=== PATIENT | male | born 1955 | race Caucasian/White ===

== ENCOUNTER 2024-01-01 10:18 | Emergency (ER) | payer MEDICARE, OTHER, SELFPAY ==
[2024-01-01 10:31] VITALS: BP 133/90
[2024-01-01 11:01] LABS: Urine Albumin Trace (Neg - Trace); Urine Bilirubin Negative (Negative); Urine Character Clear (Clear); Urine Color Yellow; Urine Glucose Negative (Negative); Urine Ketone Negative (Negative); Urine Leukocyte Trace (Negative); Urine Nitrite Negative (Negative); Urine Occult Blood 2+ (Negative); Urine Urobilinogen Negative (Neg - 1+)
[2024-01-01 11:02] LABS: % Basophils 0.4 % (0-2); % Eosinophils 0.5 % (0-6); % Immature Granulocytes 0.3 % (0-0.5); % Lymphocytes 9.8 % (20.5-51.1); % Monocytes 13.3 % (1.7-9.3); % Neutrophils 75.7 % (42.2-75.2); Absolute Basophils 0.1 10^3/uL (0-0.2); Absolute Eosinophils 0.1 10^3/uL (0-0.7); Absolute Lymphocytes 1.1 10^3/uL (1.2-3.4); Absolute Monocytes 1.5 10^3/uL (0.1-0.6); Absolute Neutrophils 8.7 10^3/uL (1.4-6.5); Hematocrit 42.4 % (39.0-52.0); Hemoglobin 14.3 g/dL (13.0-18.0); Mean Corp Hgb Conc. 33.7 g/dL (33.0-37.0); Mean Corpuscular Hgb 26.7 pg (27.0-31.0); Mean Corpuscular Volume 79.1 fL (80.0-94.0); Mean Platelet Volume 10.4 fL (7.4-10.4); Nucleated Red Blood Cells % 0 % (-); Platelet Count 220 10^3/uL (130-400); Red Blood Cell Count 5.36 10^6/uL (4.70-6.10); Red Cell Dist. Width 15.4 % (11.5-14.5); White Blood Cell Count 11.5 10^3/uL (4.8-10.8)
[2024-01-01 11:11] LABS: ALT (SGPT) 26 U/L (0-50); AST (SGOT) 34 U/L (17-59); Albumin 4.2 g/dl (3.5-5.0); Alkaline Phosphatase 103 U/L (38-126); Blood Urea Nitrogen 15 mg/dl (9-20); Calcium 9.3 mg/dl (8.4-10.2); Carbon Dioxide 27 mmol/L (22-30); Chloride 104 mmol/L (98-107); Glucose 119 mg/dl (70-99); Potassium 4.6 mmol/L (3.5-5.1); Sodium 134 mmol/L (135-145); eGFR > 60.00
[2024-01-01 11:13] LABS: Urine Mucus Moderate; Urine Squamous Cell 0-2 /LPF (Few)
[2024-01-01 11:14] LABS: Urine Bacteria Few (Negative)
[2024-01-01 11:23] VITALS: BMI 27.7
[2024-01-01 11:24] VITALS: BP 132/80
--- NOTE | 2024-01-01 11:59 | ED.GENMED ---
History of Present Illness
General
Chief Complaint: Flank Pain
Source: patient
Exam Limitations: none
Time Seen by Provider: 01/01/24 10:58
Nursing documentation reviewed up to this point in time: agreed with
Travel History
Have you had any contact with someone who has COVID-19?: No
Do you have any symptoms of coronavirus? Fever > 100 degrees, chills, cough, shortness of breath, sore throat, loss of taste or smell, muscle aches, or headache?: No
History of Present Illness
History of Present Illness:
The patient is a 68-year-old man with a past medical history of kidney stones who presents with left sided pain and is worried he may have another kidney stone. Patient reports he felt the discomfort this morning. It is intermittent in nature. He
denies fevers and chills. He denies nausea and vomiting. Patient reports the pain is minimal at this time.
Past History
Past History
ED Past Medical History: CAD, HTN, [place] and Other (Kidney stone, DVT L leg)
ED Past Surgical History: Cardiac, Orthopedic and Other (cath)
Social History
Tobacco: Non-smoker
Alcohol: Occasional
Drug: None
Personal:
Living: with family
Employment: Employed
Family History
Family History: Negative Diabetes, Hypertension or CAD
Review of Systems
Review of Systems
Allergies reviewed?: Yes
All Other Systems: ROS reviewed and negative except as documented in HPI and ROS
Constitutional: Reports no symptoms
EENT: Reports no symptoms
Respiratory: Reports no symptoms
Cardiac: Reports no symptoms
ABD/GI: Reports no symptoms
: Reports flank pain
Musculoskeletal: Reports no symptoms
Skin: Reports no symptoms
Neurological: Reports no symptoms
Endocrine: Reports no symptoms
Hematologic/Lymphatic: Reports no symptoms
Psychiatric: Reports no symptoms
Phy Exam
Physical Exam
Physical Exam:
Physical Exam
General: no apparent distress, not acutely ill
Neck: supple. no meningeal signs. normal posterior pharynx
Heart: s1/s2 regular rate and rhythm, no murmur. equal radial pulses.
Lungs: no acute respiratory distress. clear bilaterally
Abdomen: normal bowel sounds. Nondistended. Mild left lower quadrant and left flank tenderness without rebound or guarding. No pulsatile mass
Neuro: alert and oriented. no focal neurological deficits
Skin: no rash
Psychiatric: well kept. interactive and cooperative
Extremities: no edema. no calf tenderness. negative homans. good distal pulses
Course
Orders/Labs/Results
Orders:
Orders
01/01/24 10:53
Complete Blood Count/With Diff Urgent
Comprehensive Metabolic Panel Urgent
Urinalysis Reflex To Culture Urgent
Date Specimen was Collected: 01/01/24
Time Specimen was Collected: 10:33
Urine Microscopic Reflex Cult Urgent
01/01/24 11:53
CT Abd/pel Without Iv Or Oral Urgent
Comment:
Reason For Exam: L flank pain
01/01/24 13:06
Amoxicillin 875 mg/Clav 125 mg [Augmentin 875 mg/125 mg] 1 tablet PO NOW STA
Abnormal Lab Results
01/01/24
10:53
WBC 11.5 H 10^3/uL
(4.8-10.8)
MCV 79.1 L fL
(80.0-94.0)
MCH 26.7 L pg
(27.0-31.0)
RDW 15.4 H %
(11.5-14.5)
Absolute Neuts (auto) 8.7 H 10^3/uL
(1.4-6.5)
Absolute Lymphs (auto) 1.1 L 10^3/uL
(1.2-3.4)
Absolute Monos (auto) 1.5 H 10^3/uL
(0.1-0.6)
Neutrophils % 75.7 H %
(42.2-75.2)
Lymphocytes % 9.8 L %
(20.5-51.1)
Monocytes % 13.3 H %
(1.7-9.3)
Sodium 134 L mmol/L
(135-145)
Glucose 119 H mg/dl
(70-99)
Total Bilirubin 2.0 H mg/dl
(0.2-1.3)
Ur Occult Blood Reflex 2+ A
(Negative)
Leukocyte Esterase Rfl Trace A
(Negative)
Urine RBC 7-10 A /HPF
(0-2)
Urine Bacteria (Reflex) Few A
(Negative)
01/01/24 10:53
01/01/24 10:53
Vital Signs
Initial and Last Documented VS:
Initial Vital Signs
Temp Pulse Resp BP Pulse Ox
97.1 F 86 18 133/90 97
01/01/24 10:31 01/01/24 10:31 01/01/24 10:31 01/01/24 10:31 01/01/24 10:31
Last Documented Vital Signs
Temp Pulse Resp BP Pulse Ox
97.1 F 86 18 138/93 97
01/01/24 10:31 01/01/24 10:31 01/01/24 10:31 01/01/24 13:15 01/01/24 10:31
MDM/Problems Addressed
Differential Diagnosis Includes:
Renal colic, aortic aneurysm, musculoskeletal pain
MDM/Problems Addressed:
Patient presents with acute left flank pain
Chronic conditions affecting care:
Patient has history of kidney stones
Acute Exacerbation and/or Progression of Chronic Illness:
Patient may have acute exacerbation of renal colic because he states he has chronic kidney stones
*Radiology
Radiology exam reviewed: radiology read reviewed
*Pulse Oximetry
Patient hypoxic: no
*Critical Care Note
Total Time (30-74mins, 75-104mins- exclusive of procedures): Not Applicable
Data Reviewed
Review of Other/Old Records Reveals: Operative Reports (Operative note reviewed from Dr. Baig from 09/2019 when patient had stenting and lithotripsy performed for kidney stones)
Source: patient
Patient Management
Social determinants of health affecting care: Living situation and Strong social support
Escalation/DeEscalation of care consider admission/obs:
Patient continues look very well and comfortable. There is no sign of toxicity or peritonitis. Patient sent home with copy of CT report to show his primary care doctor given that his infrarenal aortic aneurysm is slightly larger.
ED Attending Note
-
Portions of this chart may have been created with voice recognition software.� Occasional wrong word or��sound alike� substitutions may have occurred due to the inherent limitations of voice recognition software.
Discharge Plan
Departure
Patient Disposition: Home (Routine Discharge)
Date of Disposition: 01/01/24
Time of Disposition: 13:01
Patient with high blood pressure during this ER visit?: Yes
Condition: Good
Covid-19: Not Applicable
Discharge Problem:
Acute diverticulitis
Instructions: Diverticulitis (DC)
Prescriptions:
New
amoxicillin-pot clavulanate 875-125 mg tablet
1 tab PO BID Qty: 19 0RF
No Action
aspirin 81 MG tablet,delayed release (DR/EC)
81 mg PO DAILY Qty: 0 0RF
carvedilol 3.125 MG tablet
3.125 mg PO BID Qty: 60 3RF
losartan 25 MG tablet
25 mg PO DAILY Qty: 30 11RF
clopidogrel 75 MG tablet
75 mg PO DAILY Qty: 30 11RF
Hold Instructions: Resume on 04/07/23. HOLD PLAVIX for ~72HRS POST OP; OKAY TO RESUME TUESDAY AM 04/07/23
atorvastatin 80 MG tablet
80 mg PO DAILY@1400
potassium citrate
1,600 mg PO BID
tramadol 50 mg tablet
50 mg PO Q6HPRN PRN (Reason: severe pain/breakthrough pain) Qty: 10 0RF
acetaminophen [Tylenol Extra Strength] 500 mg tablet
1,000 mg PO Q6HPRN PRN (Reason: mild pain) Qty: 1 0RF
Referrals:
Chet Grant MD [Family Provider] -
Activity Restrictions/Additional Instructions:
Please follow-up with your primary care doctor in 1 to 2 weeks to show him your CAT scan report. It shows that your abdominal aortic aneurysm is slightly bigger, which may require follow-up.
Interventions
Interventions:
*Risk Screen - Suicide Last Done: 01/01/24 11:23
*General Assessment Last Done: 01/01/24 11:23
*Neglect/Abuse Screening Last Done: 01/01/24 11:23
ED- Fall Risk Assessment Last Done: 01/01/24 11:23
*ED COVID-19 Vaccine History Last Done: 01/01/24 11:23
[place]-Rexsuu-Fqdlkxsqps Assessment Last Done: 01/01/24 11:23
ED-Male Genitourinary Assessment Last Done: 01/01/24 11:23
[2024-01-01] MEDS: AUGMENTIN 875 MG/125 MG 1 TABLET PO (13:13)
[2024-01-01 13:15] VITALS: BP 138/93
== END 2024-01-01 13:34 | disposition home or self-care (01) ==
LOC: EMR 10:18
PROVIDERS: Emergency Medicine; EMERGENCY PHYSICIAN Emergency Medicine; FAMILY PHYSICIAN Family Medicine; REFERRING PHYSICIAN Specialist
DX: K57.32 Diverticulitis of large intestine without perforation or abscess without bleeding (principal); I71.43 Infrarenal abdominal aortic aneurysm, without rupture; I10 Essential (primary) hypertension; I25.10 Atherosclerotic heart disease of native coronary artery without angina pectoris; I25.2 Old myocardial infarction; Z86.718 Personal history of other venous thrombosis and embolism; Z87.442 Personal history of urinary calculi; Z79.82 Long term (current) use of aspirin; Z88.0 Allergy status to penicillin; Z91.048 Other nonmedicinal substance allergy status
CPT/HCPCS: 99284; 74176; 80053; 81003; 81015; 85025

== ENCOUNTER → 2024-03-14 06:19 | Day surgery (SDC) | payer MEDICARE, OTHER, SELFPAY | LOC: GI 06:19 | PROVIDERS: ATTENDING PHYSICIAN Internal Medicine; FAMILY PHYSICIAN Internal Medicine Cardiovascular Disease | DX: Z12.11 Encounter for screening for malignant neoplasm of colon (principal); K57.30 Diverticulosis of large intestine without perforation or abscess without bleeding; Z86.010 Personal history of colon polyps | CPT/HCPCS: G0105 ==

== ENCOUNTER 2024-04-30 11:21 | Inpatient (IN) | payer MEDICARE, OTHER, SELFPAY ==
[2024-04-30] VITALS (11 sets, daily range): BP systolic 96–146; BP diastolic 71–100; BMI 26.6; BMI 26.5
[2024-04-30] MEDS: NSS 1000 IV ×2 (06:42→12:29)
[2024-04-30] MEDS: TYLENOL 1000 MG PO (06:48)
--- NOTE | 2024-04-30 06:56 | ED.GENMED ---
History of Present Illness
General
Chief Complaint: Heart Rate Problem
Source: patient
Exam Limitations: none
Time Seen by Provider: 04/30/24 06:38
Nursing documentation reviewed up to this point in time: agreed with
Travel History
Have you had any contact with someone who has COVID-19?: No
Do you have any symptoms of coronavirus? Fever > 100 degrees, chills, cough, shortness of breath, sore throat, loss of taste or smell, muscle aches, or headache?: No
History of Present Illness
History of Present Illness:
The patient is a 69-year-old man with a past medical history of coronary artery disease, factor V Leiden, high blood pressure and high cholesterol, who comes in with complaints of sweating and chills for 2 days. Patient found to be tachycardic in
the ED and febrile. Patient reports he had 3 dental crowns placed 6 days ago. He denies chest pain and shortness of breath but states that he feels a little rattling in his chest and has been coughing. He also reports increased frequency of
urination but no burning or blood. He denies nausea, vomiting, abdominal pain and diarrhea. He denies sick contacts. He reports nasal congestion. He denies sore throat and headache.
Past History
Past History
ED Past Medical History: CAD, HTN, [place] and Other (Kidney stone, DVT L leg)
ED Past Surgical History: Cardiac, Orthopedic and Other (cath)
Social History
Tobacco: Non-smoker
Alcohol: Occasional
Drug: None
Personal:
Living: with family
Employment: Employed
Family History
Family History: Negative Diabetes, Hypertension or CAD
Review of Systems
Review of Systems
Allergies reviewed?: Yes
All Other Systems: ROS reviewed and negative except as documented in HPI and ROS
Constitutional: Reports fever, fatigue and chills
EENT: Reports other (Runny nose, nasal congestion)
Respiratory: Reports cough
Cardiac: Reports no symptoms
ABD/GI: Reports no symptoms
: Reports no symptoms
Musculoskeletal: Reports no symptoms
Skin: Reports no symptoms
Neurological: Reports no symptoms
Endocrine: Reports no symptoms
Hematologic/Lymphatic: Reports no symptoms
Psychiatric: Reports no symptoms
Phy Exam
Physical Exam
Physical Exam:
Physical Exam
General: Patient appears flushed and slightly anxious but conversational and fully awake
Neck: supple. no meningeal signs. normal psoterior pharynx
Heart: Tachycardic, regular
Lungs: Questionable crackles right lower lobe. No tachypnea
Abdomen: normal bowel sounds. not tender. no CVAT
Neuro: alert and oriented. no focal neurological deficits
Skin: no rash
Psychiatric: well kept. interactive and cooperative
Extremities: no edema. no calf tenderness. negative homans. good distal pulses
Course
Orders/Labs/Results
Orders:
Orders
04/30/24 06:19
Electrocardiogram (*1) Urgent
Reason for Study: Atrial Fibrillation
EKG- Treatment ONCE
04/30/24 06:29
CMP [Comprehensive Metabolic Panel] Urgent
Complete Blood Count/With Diff Urgent
Troponin I Urgent
04/30/24 06:31
Cardiac Monitoring- Treatment ONCE
IV Insert/Care/Rem.- Treatment PRN
O2 Therapy [RESP] Urgent
Titrate/Wean O2 to maintain O2 sat greater than (%): 93
Special Instructions: TO MAINTAIN CONTINUOUS O2 SATS > OR = 93%
Pulse Ox/cont/shift [RESP] Urgent
Quantity: 1
Special Instructions: CONTINUOUS
04/30/24 06:40
COVID-19 Antigen Urgent
Source: Nasal Swab
Lactic Acid Q4H
Comment: ON ICE, CANCEL 2ND ORDER IF FIRST LACTIC ACID LEVEL <2
Blood Culture Q30M
VICKY Source: Blood/Venous
Specimen Description:
Comment: FROM 2 SEPARATE SITES
Blood Culture Q30M
VICKY Source: Blood/Venous
Specimen Description:
Comment: FROM 2 SEPARATE SITES
Influenza A+B Rapid Molecular Urgent
VICKY Source: Nasal Swab
Specimen Description:
04/30/24 06:42
0.9% Sodium Chloride 1000 ml [Nss] 1,000 ml IV BOLUS
04/30/24 06:47
Acetaminophen [Tylenol] 1,000 mg .ROUTE .STK-MED ONE
04/30/24 06:48
Acetaminophen [Tylenol] 1,000 mg PO NOW STA
04/30/24 06:55
CR Chest - 2 Views Urgent
Comment:
Reason For Exam: fever, tachycardia, cough
04/30/24 06:56
Ibuprofen [Motrin] 600 mg PO NOW STA
04/30/24 07:30
Urinalysis Reflex To Culture Urgent
Date Specimen was Collected: 04/30/24
Time Specimen was Collected: 07:29
Urine Microscopic Reflex Cult Urgent
04/30/24 08:37
CefTRIAXone [Rocephin] 1,000 mg IV NOW STA
04/30/24 08:38
MetroNIDAZOLE 500 MG/100 ML [Flagyl 500 mg] 100 ml IV ONCE
04/30/24 08:40
Heparin 4,000 units IV NOW STA
Pharmacy Request to Place See Dose Instructions PO NOW STA
Discontinue all Active Warfarin orders?: Yes
04/30/24 08:41
PTT Urgent
Comment: Obtain baseline before beginning heparin infusion if not already collected
Nursing to Place Non Medication Order As Directed
Physician Order: PTT 6 hours after initial start of Heparin infusion
04/30/24 08:45
Heparin INFUSION titrate rate - CONTINUOUS Heparin 45306 Units/250 ml 25,000 units in 250 ml IV PER PROTOCOL
Weight to be used for heparin protocol in kilograms (kg):: 89
Protocol:: Cardiac Tx/Acute Coronary
PTT Goal Range to be used:: PTT 73 to 111 seconds
Order type:: Initial
INITIAL Infusion Dose (UNITS/KG/hr) & then follow protocol:: 12 units/kg/hr
Infusion Dose in UNITS/hr & then follow protocol (UNITS/hr):: 1,000
INFUSION RATE in mL/hr & then follow protocol (mL/hr):: 10
PTT less than or equal to 64 seconds:: Increase rate by 200 units/hr (+ 2 mL/hr)
PTT 64.1 to 72.9 seconds:: Increase rate by 100 units/hr (+ 1 mL/hr)
PTT 73 to 111 seconds:: Target Range. No change in rate.
PTT 111.1 to 130.9 seconds:: Decrease rate by 100 units/hr (- 1 mL/hr)
PTT 131 to 199.9 seconds:: HOLD for 1 hr. Then decrease rate by 200 units/hr (- 2 mL/hr)
PTT greater than or equal to 200 seconds:: HOLD for 2 hrs & Notify Provider. Then decrease by 200 units/hr (-
2 mL/hr)
Lab follow-up:: Each change, PTT q6h until 2 consecutive are therapeutic. Then PTT
daily.
04/30/24 09:[address] See Dose Instructions IV DIRECTED
04/30/24 10:45
Lactic Acid Q4H
Comment: ON ICE, CANCEL 2ND ORDER IF FIRST LACTIC ACID LEVEL <2
Abnormal Lab Results
04/30/24 04/30/24
06:29 07:30
WBC 14.7 H 10^3/uL
(4.8-10.8)
MCV 76.8 L fL
(80.0-94.0)
MCH 26.1 L pg
(27.0-31.0)
RDW 15.0 H %
(11.5-14.5)
MPV 10.6 H fL
(7.4-10.4)
Abs Immat Gran (auto) 0.1 H 10^3/uL
(0-0.05)
Absolute Neuts (auto) 12.1 H 10^3/uL
(1.4-6.5)
Absolute Lymphs (auto) 0.8 L 10^3/uL
(1.2-3.4)
Absolute Monos (auto) 1.7 H 10^3/uL
(0.1-0.6)
Neutrophils % 82.5 H %
(42.2-75.2)
Lymphocytes % 5.1 L %
(20.5-51.1)
Monocytes % 11.8 H %
(1.7-9.3)
Sodium 133 L mmol/L
(135-145)
Carbon Dioxide 20 L mmol/L
(22-30)
Glucose 169 H mg/dl
(70-99)
Total Bilirubin 1.4 H mg/dl
(0.2-1.3)
Troponin I 0.148 H* ng/ml
Ur Occult Blood Reflex 4+ A
(Negative)
Urine RBC 26-30 A /HPF
(0-2)
Urine Glucose 1+ A
(Negative)
04/30/24 06:29
04/30/24 06:29
Vital Signs
Initial and Last Documented VS:
Initial Vital Signs
Temp Pulse Resp BP Pulse Ox
98.1 F 150 24 146/92 93
04/30/24 06:16 04/30/24 06:16 04/30/24 06:16 04/30/24 06:16 04/30/24 06:16
Last Documented Vital Signs
Temp Pulse Resp BP Pulse Ox
100.0 F 150 24 146/92 93
04/30/24 06:43 04/30/24 06:16 04/30/24 06:16 04/30/24 06:16 04/30/24 06:16
MDM/Problems Addressed
Differential Diagnosis Includes:
Pneumonia, UTI, endocarditis, bacteremia
MDM/Problems Addressed:
Patient presents with acute tachycardia and fever
Chronic conditions affecting care: HTN
Acute Exacerbation and/or Progression of Chronic Illness: HTN
*Radiology
Radiology exam reviewed: preliminary read by ED provider (Possible haziness left lower lung base) and radiology read reviewed
*Pulse Oximetry
Patient hypoxic: no
*EKG
Interpreted by ED Provider?: Yes
Interpretation: abnormal
Comparison EKG: changes noted
Rate: tachycardiac
Rhythm: atrial flutter
[place]: normal axis and left axis deviation
Interval: normal interval
QRS Pattern: normal QRS
Ischemia: non-specific ST changes
*Airbrush Artist Technical Interpretation
Rate: tachycardiac and other
Interpretation: abnormal
Rhythm: atrial flutter
*Critical Care Note
Total Time (30-74mins, 75-104mins- exclusive of procedures): 40 min
comment:
40 minutes of critical care given to the patient including frequent rechecks of his heart rate, reviewing his chest x-ray, reviewing his blood work, reviewing his EKG and counseling the patient about admission
Data Reviewed
Review of Other/Old Records Reveals: Progress Notes (Dr. Baig's note reviewed from 09/2019 when patient presented with bilateral kidney stones)
Source: patient
Patient Management
Discussion with other providers: Hospitalist
Escalation/DeEscalation of care consider admission/obs:
Given patient's new onset a flutter with rapid rate, as well as my concern for possible aspiration pneumonia or even possible bacteremia, decision made to admit the patient for IV antibiotics. Heparin will be started for the A-flutter.
ED Attending Note
-
Portions of this chart may have been created with voice recognition software.� Occasional wrong word or��sound alike� substitutions may have occurred due to the inherent limitations of voice recognition software.
Discharge Plan
Departure
Patient Disposition: Admit
Date of Disposition: 04/30/24
Time of Disposition: 08:38
Admit to: Telemetry
Presentation/result/management discussed w/ accepting MD/DO: Hospitalist
Patient with high blood pressure during this ER visit?: Yes
Condition: Good
Covid-19: Not Applicable
Discharge Problem:
New onset atrial flutter, Atrial flutter with rapid ventricular response, Fever, Cough
Prescriptions:
No Action
aspirin 81 MG tablet,delayed release (DR/EC)
81 mg PO DAILY Qty: 0 0RF
carvedilol 3.125 MG tablet
3.125 mg PO BID Qty: 60 3RF
losartan 25 MG tablet
25 mg PO DAILY Qty: 30 11RF
clopidogrel 75 MG tablet
75 mg PO DAILY Qty: 30 11RF
Hold Instructions: Resume on 04/07/23. HOLD PLAVIX for ~72HRS POST OP; OKAY TO RESUME TUESDAY AM 04/07/23
atorvastatin 80 MG tablet
80 mg PO DAILY@1400
Decongestant 2-5-325 mg Tablet
2 tab PO DAILYPRN PRN (Reason: congestion)
potassium citrate 15 mEq Tablet Extended Release
15 meq PO BID
Referrals:
Chet Grant MD [Family Provider] -
Interventions
Interventions:
*Risk Screen - Suicide Last Done: 04/30/24 06:16
*Neglect/Abuse Screening Last Done: 04/30/24 06:16
ED- Fall Risk Assessment Last Done: 04/30/24 07:08
ED- Cardiac Assessment Last Done: 04/30/24 07:08
ED- Pulmonary Assessment Last Done: 04/30/24 07:08
Discharge Date and Time
Print Language: GHANAIAN
[2024-04-30 06:58] LABS: % Basophils 0.2 % (0-2); % Immature Granulocytes 0.4 % (0-0.5); % Lymphocytes 5.1 % (20.5-51.1); % Monocytes 11.8 % (1.7-9.3); % Neutrophils 82.5 % (42.2-75.2); Absolute Immature Granulocytes 0.1 10^3/uL (0-0.05); Absolute Lymphocytes 0.8 10^3/uL (1.2-3.4); Absolute Monocytes 1.7 10^3/uL (0.1-0.6); Absolute Neutrophils 12.1 10^3/uL (1.4-6.5); Hematocrit 39.1 % (39.0-52.0); Hemoglobin 13.3 g/dL (13.0-18.0); Mean Corpuscular Hgb 26.1 pg (27.0-31.0); Mean Corpuscular Volume 76.8 fL (80.0-94.0); Mean Platelet Volume 10.6 fL (7.4-10.4); Nucleated Red Blood Cells % 0 % (-); Platelet Count 174 10^3/uL (130-400); Red Blood Cell Count 5.09 10^6/uL (4.70-6.10); White Blood Cell Count 14.7 10^3/uL (4.8-10.8)
[2024-04-30 07:12] LABS: Lactic Acid 1.1 mmol/L (0.7-2.0)
[2024-04-30 07:14] LABS: ALT (SGPT) 14 U/L (0-50); AST (SGOT) 22 U/L (17-59); Albumin 3.8 g/dl (3.5-5.0); Alkaline Phosphatase 78 U/L (38-126); Blood Urea Nitrogen 17 mg/dl (9-20); Calcium 8.8 mg/dl (8.4-10.2); Carbon Dioxide 20 mmol/L (22-30); Chloride 103 mmol/L (98-107); Estimated Creatinine Clearance 83 ml/min; Glucose 169 mg/dl (70-99); Sodium 133 mmol/L (135-145); Total Bilirubin 1.4 mg/dl (0.2-1.3); Total Protein 7.6 g/dl (6.3-8.2); eGFR > 60.00
[2024-04-30] MEDS: MOTRIN 600 MG PO (07:17)
[2024-04-30 07:19] LABS: COVID-19 Antigen Negative (Negative)
[2024-04-30 07:48] LABS: Troponin I 0.148 ng/ml
[2024-04-30 07:51] LABS: Urine Albumin Trace (Neg - Trace); Urine Bilirubin Negative (Negative); Urine Character Clear (Clear); Urine Color Yellow; Urine Glucose 1+ (Negative); Urine Ketone Negative (Negative); Urine Leukocyte Negative (Negative); Urine Nitrite Negative (Negative); Urine Occult Blood 4+ (Negative); Urine Specific Gravity 1.025 (<1.030); Urine Urobilinogen Negative (Neg - 1+)
[2024-04-30 08:16] LABS: Urine Mucus Moderate
[2024-04-30 08:18] LABS: Urine Hyaline Cast 0-2 /LPF (0-2); Urine Red Blood Cell 26-30 /HPF (0-2); Urine Squamous Cell 0-2 /LPF (Few); Urine White Cell 0-2 /HPF (0-5)
[2024-04-30] MEDS: ROCEPHIN 1000 MG IV (09:05)
[2024-04-30] MEDS: FLAGYL 500 MG 100 IV ×2 (09:11→17:42)
[2024-04-30] MEDS: HEPARIN 4000 UNITS IV (09:33)
[2024-04-30] MEDS: HEPARIN 25000 UNITS/250 ML IV (09:34)
[2024-04-30 09:47] LABS: APTT 31.8 Sec (23.4-35.0)
--- NOTE | 2024-04-30 09:55 | HPS.HSE ---
Family Physician
-
Family Physician: Chet Grant
Chief Complaint
-
chills and cough
History of Present Illness
Mr. Dinesh Flower is a 69 yo man with hx CAD, factor V Leiden, HTN, HLD presents to the ER with sweating and chills. He had 3 dental crowns placed 6 days ago.
Patient states he began to feel unwell Juma. He complains of fatigue and intermittent chills. No mouth soreness or pain. Never measured his fever. + nausea. No vomiting. No diarrhea, mild constipation. No abdominal pain. Mild cough and
increased chest congestion. He has chronically more swollen LLE than right.
Patient states he felt palpitations earlier but currently in afib low 100's denies chest discomfort. No chest pain.
He has not yet taken his morning medication.
Medical History
Past Medical History
Past Medical History: Reports Other (CAD, factor V Leiden, HTN, HLD, DVT left leg)
Past Surgical History: Reports Cardiac and Orthopedic
Social History
Tobacco: Non-smoker
Alcohol: Occasional
Family History
Family History: Not pertinent
Allergies / Home Medications
Allergies reflects when Allergies were last updated in [facility].
Home Medications with original date entered in [facility]
Allergy/Medication List:
Allergies
Allergy/AdvReac Type Severity Reaction Status Date / Time
penicillin V Allergy childhood- Verified 04/30/24 09:07
tolerated
ceftriaxone
04/2024
pollen extracts Allergy hayfever Verified 04/30/24 06:18
Home Medications
atorvastatin 80 mg tablet 80 mg PO DAILY@1400 High Cholesterol 08/31/19
aspirin 81 mg tablet,delayed release 81 mg PO DAILY Blood Clot Prevention/Tx 04/30/24
carvedilol 3.125 mg tablet 3.125 mg PO BID Blood Pressure 04/30/24
chlorpheniramine 2 mg-phenylephrine 5 mg-acetaminophen 325 mg tablet 2 tab PO DAILYPRN PRN congestion 04/30/24
clopidogrel 75 mg tablet 75 mg PO DAILY Blood Clot Prevention/Tx 04/30/24
losartan 25 mg tablet 25 mg PO DAILY Blood Pressure 04/30/24
potassium citrate 15 mEq (1,620 mg) tablet,extended release 15 meq PO BID Electrolyte Repletion 04/30/24
Review of Systems
-
History Source: Patient
A 12 point ROS was completed and negative except as noted: Yes
Physical Exam
Vital Signs
Vital Signs
Temp Pulse Resp BP Pulse Ox
100.0 F 101 29 112/93 90
04/30/24 06:43 04/30/24 09:30 04/30/24 08:30 04/30/24 07:00 04/30/24 09:30
Physical Exam
General: No Apparent Distress, Conversant and Other (appears fatigued )
HEENT: NormoCephalic, Anicteric and PERRLA
Respiratory: Clear; No Wheezes
Cardiac: S1/S2 and Regular Rhythm
GI: Soft and Non Tender
Musculoskeletal: Other (increased LE swelling LLE (chronic))
Skin: Warm and Dry; No Rash
Neuro: AO x 3
Psych: Calm
Laboratory Results
-
04/30/24 06:29
04/30/24 06:29
Laboratory Results
APTT 31.8 Sec (23.4-35.0) 04/30/24 06:41
Lactic Acid 1.1 mmol/L (0.7-2.0) 04/30/24 06:40
Total Bilirubin 1.4 mg/dl (0.2-1.3) H 04/30/24 06:29
AST 22 U/L (17-59) 04/30/24 06:29
ALT 14 U/L (0-50) 04/30/24 06:29
Alkaline Phosphatase 78 U/L (38-126) 04/30/24 06:29
Troponin I 0.148 ng/ml H* 04/30/24 06:29
Data Reviewed
-
Diagnostic Radiology: Report Reviewed by me
Lab Data: Labs Reviewed by me
Impression/Plan
-
Mr. Dinesh Flower is a 69 yo man with hx CAD, factor V Leiden, HTN, HLD presents to the ER with sweating and chills. He had 3 dental crowns placed 6 days ago.
Triage VS: T 98.1, P 150, RR 24, BP 146/92, SpO2 93%
LABS: WBC 14.7, Hg 13.3, PLT 174, Na 133, K+ 4.0, BUN 17, Cr 0.9, Glucose 169, lactate 1.1, T. Bili 1.4
Trop 0.148
Covid negative, Flu Negative
EKG: aflutter @ 147
CXR
IMPRESSION:
No definitive focal airspace disease. There are some subtle increased opacities along the peripheral margin of the left lung base, likely reflective of atelectasis or scarring. Pneumonia is felt less likely. No pleural effusions.
Non-TN Troponin Elevation
MAR: IV Heparin, IV Ceftriaxone, Flagyl
Sepsis with elevated WBC and RR
concern for Bacteremia with recent dental work versus pneumonia/bronchitis
-admit to tele
-broaden antibiotics to Cefepime/Flagyl (hx penicillin allergy)
-F/U blood cultures
-sputum culture if produces enough sputum
-F/U blood cultures
-gentle IVF
Aflutter with RVR
-patient asymptomatic
-heparin gtt started in ER, will continue
-resume RADIO PROGRAM DIRECTOR coreg
-cardiology consulted
CAD
Hx STEMI s/p urgent thrombectomy and stent
-given need for AC will give plavix for now while on heparin gtt
-likely convert to NOAC, will place CM consult
Essential HTN
-hold Losartan for now to make room in BP for rate adjusting meds
HLD
-RADIO PROGRAM DIRECTOR statin
Hx Factor V Leiden
-patient states he hasn't been on Coumadin for over 20 years and past DVT's were provoked.
DVT PPx - heparin gtt
FULL CODE
76 minutes spent on patient evaluation, medical decision making, coordination of care
[2024-04-30] MEDS: PLAVIX 75 MG PO (10:54)
[2024-04-30] MEDS: COREG 3.125 MG PO ×2 (11:00→21:11)
--- NOTE | 2024-04-30 11:04 | CON.CAR ---
Addendum entered and electronically signed by Sherri Lozano DO 04/30/24 16:51:
I saw and examined the patient.
The Wallpaper Inspector And Shipper's note was reviewed and I agree with the note.
Comment: Dinesh is a 69-year-old male with past medical history significant for coronary artery disease status post inferolateral SD with BETH to OM/mid circumflex in May 2015 with NSTEMI and occlusion requiring thrombectomy of previous placed OM
stent 09/2016, hypertension, hyperlipidemia, factor V Leiden, DVT of left leg following orthopedic surgery who presents to emergency department 04/30/2024 with complaints of ill feeling, fatigue, chills and sweats starting on Tuesday night into
Tuesday. He had dental work on Tuesday with the placement of 3 crowns. Patient reports he started to feel unwell at the end of last week with complaints of fatigue and intermittent chills. He also noted palpitations this am and checked an ECG
on [employer] this morning and it reported atrial fibrillation. In emergency department he was noted to be in atrial flutter 2-1 with rapid ventricular response. Troponin elevated at 0.148. He was found to have elevated white count of 14.7. He
was COVID and flu negative. Chest x-ray showed subtle increased opacities along peripheral margin of left lung base likely atelectasis versus scarring. He was started on IV heparin drip. Cardiology being asked to see patient given new onset
atrial flutter/fibrillation and abnormal troponin. At time of this evaluation he reports feeling fair. He denies chest pain, SOB, dizziness, lightheadedness.
General: No acute distress, AAOX3
Heart: Irregularly irregular. + S3 S1/S2, No murmur
Lungs: CTA b/l, negative wheezes/rales/rhonchi
Abd: Positive BS, NT/ND, neg rebound/rigidity/guarding
Ext: Chronic venous stasis changes and varicosities right lower extremity. No edema
Neuro: nonfocal
Echo 06/09/2015: EF 55 to 60% with mild inferolateral hypokinesis. Mild concentric LVH. Mild MR, PAP 25 to 30 mmHg
Stress echo 06/02/2022: Baseline echo mild hypokinesis in mid/distal inferolateral segments consistent with prior infarction. 12 minutes, 13 METS, 90% age-predicted max heart rate, no evidence of exercise-induced ischemia. DTS +12
Cardiac catheterization 10/09/2016: LM: Normal. LAD 50%, 80% second diagonal. LCX: OM2 occlusion and previously placed BETH. Underwent successful thrombectomy with stenting 3.25 x 28 mm Xience BETH. RCA 30% proximal, distal 30% acute, marginal
ostial 50%. Posterior lateral branch with LI
Plan:
Several days of ill feeling with leukocytosis and low-grade fever following recent dental work
-Complaining of sore throat but denies oral or dental pain
-Lactic acid not positive
-Flu/COVID-negative. Blood cultures pending
-Continue antibiotics per primary service
Atrial flutter/fibrillation with rapid ventricular response.
-Heart rates are controlled
-We reviewed diagnosis, pathophysiology, treatment options and stroke risk as well as stroke risk reduction.
-Will transition IV heparin to Eliquis 5 mg p.o. twice daily
-Takes Coreg 3.125 mg as outpatient. If blood pressure allows consider up titration
-TSH within normal limits
-Can consider EFRAIN cardioversion if remains in atrial fibrillation pending workup of infectious issues.
Abnormal troponin, suspect nonischemic myocardial injury secondary to atrial flutter and sepsis
-Initial troponin 0.148, trend to peak. Repeat pending
-Denies chest pain or pressure suggestive of angina
-Would check echocardiogram
-History of CAD with in-stent thrombosis September 2016. Given new atrial fibrillation/flutter with plan to discharge on Eliquis anticoagulation and Plavix. Aspirin will be discontinued
-Continue high-dose statin, beta-ann
Hypotensive - BP noted to be low on arrival. Improving with IV fluids. Hold Losartan for now
Will follow with you
Original Note:
Consultation
Consultation Request
Date/Time Consultation Requested: 04/30/2024
Date/Time Consultation Performed: 04/30/2024
Requesting Provider: Emmanuel Flores
Performing Provider: Sharda Neely PA-C for Dr. Lozano
Reason for Consultation: abnormal troponin, new onset atrial fibrillation/flutter
Medical History
-
History of Present Illness:
Patient is a 69-year-old male with past medical history significant for coronary artery disease status post inferolateral SD with BETH to OM/mid circumflex in May 2015 with NSTEMI and occlusion requiring thrombectomy of previous placed OM stent
09/2016, hypertension, hyperlipidemia, factor V Leiden, DVT of left leg following orthopedic surgery who presents to emergency department 04/30/2024 with complaints of diaphoresis and chills. Patient reports he started to feel unwell at the end of
last week with complaints of fatigue and intermittent chills. He also noted palpitations this am. He checked his heart rate and ECG on Apple watch this morning and it reported atrial fibrillation. He reports he had extensive dental work last week
and underwent placement of 3 crowns within 6 days. In emergency department he was noted to be in atrial flutter 2-1 with rapid ventricular response. Troponin elevated at 0.148. He was found to have elevated white count of 14.7. He was COVID and
flu negative. Chest x-ray showed subtle increased opacities along peripheral margin of left lung base likely atelectasis versus scarring. He was started on IV heparin drip. Cardiology being asked to see patient given new onset atrial
flutter/fibrillation and abnormal troponin. At time of this evaluation he reports feeling fair. He denies chest pain, SOB, dizziness, lightheadedness.
PMH:
Coronary artery disease
Inferolateral SD with BETH to OM2/mid circumflex 05/2015
NSTEMI with occlusion with thrombectomy of previous placed OM stent with additional BETH 09/2016
Hypertension
Hyperlipidemia
Factor V Leiden
DVT of left leg following orthopedic surgery
Kidney stones status post
Ureter stone status post lithotripsy
Bilateral hernia repair
Past Medical History
Past Medical History: Other (See HPI)
Past Surgical History: Cardiac (BETH to OM2/mid circumflex May 2015) and Other (Repair of torn Achilles tendon, left uteroscopy with laser lithotrispy 2014, renal stone lithotripsy 2018, bilateral inguinal hernia repairs 04/09/2023 )
Social History
Tobacco: Non-Smoker
Alcohol: Occasional
Drug: None
Personal:
Living: With Family
Family History
Family History: Cancer (Father and mother of lung cancer, daughter has thyroid cancer)
Allergies / Home Medications
Allergy/AdvReac Type Severity Reaction Status Date / Time
penicillin V Allergy childhood- Verified 04/30/24 09:07
tolerated
ceftriaxone
04/2024
pollen extracts Allergy hayfever Verified 04/30/24 06:18
�Medication �Instructions �Recorded �Confirmed �Type
atorvastatin 80 mg tablet 80 mg PO DAILY@1400 High 08/31/19 04/30/24 History
Cholesterol
aspirin 81 mg tablet,delayed 81 mg PO DAILY Blood Clot 04/30/24 04/30/24 History
release Prevention/Tx
carvedilol 3.125 mg tablet 3.125 mg PO BID Blood Pressure 04/30/24 04/30/24 History
chlorpheniramine 2 2 tab PO DAILYPRN PRN congestion 04/30/24 04/30/24 History
mg-phenylephrine 5
mg-acetaminophen 325 mg tablet
clopidogrel 75 mg tablet 75 mg PO DAILY Blood Clot 04/30/24 04/30/24 History
Prevention/Tx
losartan 25 mg tablet 25 mg PO DAILY Blood Pressure 04/30/24 04/30/24 History
potassium citrate 15 mEq (1,620 15 meq PO BID Electrolyte Repletion 04/30/24 04/30/24 History
mg) tablet,extended release
Review of Systems
-
History Source: Patient
All other systems: Negative unless noted
Physical Exam
Vital Signs
Temp Pulse Resp BP Pulse Ox
98.3 F 99 18 112/93 91
04/30/24 09:00 04/30/24 10:45 04/30/24 09:00 04/30/24 07:00 04/30/24 10:45
GEN: No distress, awake, Ox3
HEENT: supple, anicteric, mmm
LUNGS: CTA, no wheezes/rales
CV: Irregularly irregular, S1/S2,, no murmur, rub or gallop
ABD: soft, BS+, NT/ND
EXT: +1 edema left leg with skin changes consistent with chronic venous stasis, No edema of RLE
NEURO: Gross non-focal
SKIN: No rash, warm, dry, pink
Lab Results
04/30/24 06:29
04/30/24 06:29
Troponin I 0.148 ng/ml H* 04/30/24 06:29
Impression / Plan
-
PCP: Chet Grant
Stave Cutter: Dr. Nicholson
Impression:
Presented to 04/30/2024 with diaphoresis, sweating and chills
Leukocytosis
Concern for sepsis, possibly secondary to extensive dental work
New onset atrial flutter with rapid ventricular response
Abnormal troponin, suspect nonischemic myocardial injury secondary to atrial flutter and sepsis
Coronary artery disease
Inferolateral SD with BETH to OM2/mid circumflex 05/2015
NSTEMI with occlusion with thrombectomy of previous placed OM stent with additional BETH 09/2016
Hypertension
Hyperlipidemia
Factor V Leiden
DVT of left leg following orthopedic surgery
Kidney stones status post
Ureter stone status post lithotripsy
Bilateral hernia repair
Echo 06/09/2015: EF 55 to 60% with mild inferolateral hypokinesis. Mild concentric LVH. Mild MR, PAP 25 to 30 mmHg
Stress echo 06/02/2022: Baseline echo mild hypokinesis in mid/distal inferolateral segments consistent with prior infarction. 12 minutes, 13 METS, 90% age-predicted max heart rate, no evidence of exercise-induced ischemia. DTS +12
Cardiac catheterization 10/09/2016: LM: Normal. LAD 50%, 80% second diagonal. LCX: OM2 occlusion and previously placed BETH. Underwent successful thrombectomy with stenting 3.25 x 28 mm Xience BETH. RCA 30% proximal, distal 30% acute, marginal
ostial 50%. Posterior lateral branch with LI
Plan:
Presents 04/30/2024 with diaphoresis, sweating and chills. Noted to have leukocytosis with low-grade fever.
-Concern for sepsis possibly secondary to extensive dental work performed last week. Flu COVID-negative
-Blood cultures pending
-Continue antibiotics per primary service
Atrial flutter with rapid ventricular response.
-This appears to be new diagnosis over last 24 hours. Patient has Apple Watch and checked his heart rate on 04/29/2024 which showed sinus rhythm. However upon awakening morning of 04/30/2024 he was noted to be in atrial fibrillation
-Heart rates now reasonably on controlled
-Currently on heparin drip.
-Will require anticoagulation. Case management consult for cost of Eliquis
-Takes Coreg 3.125 mg as outpatient. If blood pressure allows consider up titration
Abnormal troponin, suspect nonischemic myocardial injury secondary to atrial flutter and sepsis
-Initial troponin 0.148, trend to peak. Repeat pending
-Would check echocardiogram
-History of CAD with in-stent thrombosis September 2016. Outpatient recommendation was to continue indefinite dual antiplatelet therapy with aspirin and Plavix. Given new onset atrial flutter would consider anticoagulation with Plavix.
-Continue high-dose statin, beta-ann
Hypotensive - BP noted to be low on arrival. Improving with IV fluids. Hold Losartan for now
HPI 04/30/2024:
Patient is a 69-year-old male with past medical history significant for coronary artery disease status post inferolateral SD with BETH to OM/mid circumflex in May 2015 with NSTEMI and occlusion requiring thrombectomy of previous placed OM stent
09/2016, hypertension, hyperlipidemia, factor V Leiden, DVT of left leg who presents to emergency department 04/30/2024 with complaints of diaphoresis and chills. Patient reports he started to feel unwell at the end of last week with complaints of
fatigue and intermittent chills. He also noted palpitations for several days. He reports he had extensive dental work last week and underwent placement of 3 crowns within 6 days. In emergency department he was noted to be in atrial flutter 2-1
with rapid ventricular response. Troponin elevated at 0.148. He was found to have elevated white count of 14.7. He was COVID and flu negative. Chest x-ray showed subtle increased opacities along peripheral margin of left lung base likely
atelectasis versus scarring. He was started on IV heparin drip. Cardiology being asked to see patient given new onset atrial flutter and abnormal troponin
Data Reviewed
-
EKG: Report Reviewed by me, Discussed with Physician and Discussed with Patient
Labs: Labs Reviewed by me, Discussed with Physician and Discussed with Patient
Old Records: Reviewed
[2024-04-30] MEDS: MAXIPIME 2000 MG IV ×2 (12:30→21:13)
[2024-04-30] MEDS: STERILE WATER FOR INJECTION 10 ML IV ×2 (12:30→21:13)
[2024-04-30 14:15] LABS: Troponin I 0.116 ng/ml
[2024-04-30 14:16] LABS: TSH Reflex To Free T4 0.79 uIU/ml (0.47-4.68)
[2024-04-30] MEDS: LIPITOR 80 MG PO (14:30)
[2024-04-30 16:26] LABS: APTT 70.2 Sec (23.4-35.0)
[2024-04-30 20:45] LABS: Troponin I 0.074 ng/ml
[2024-04-30] MEDS: MUCINEX 600 MG PO (21:13)
[2024-05-01] VITALS (19 sets, daily range): BP systolic 93–127; BP diastolic 55–84; BMI 26.4
[2024-05-01 00:08] LABS: APTT 55.7 Sec (23.4-35.0)
[2024-05-01] MEDS: TYLENOL 650 MG PO ×2 (00:22→14:26)
[2024-05-01] MEDS: LOPRESSOR 2.5 MG IV (00:48)
[2024-05-01] MEDS: FLAGYL 500 MG 100 IV ×3 (00:52→16:59)
[2024-05-01 02:23] LABS: Troponin I 0.115 ng/ml
[2024-05-01] MEDS: STERILE WATER FOR INJECTION 10 ML IV ×3 (04:52→21:32)
[2024-05-01] MEDS: MAXIPIME 2000 MG IV ×3 (04:52→21:32)
[2024-05-01 06:16] LABS: APTT 82.9 Sec (23.4-35.0)
[2024-05-01 06:42] LABS: Blood Urea Nitrogen 17 mg/dl (9-20); Calcium 8.7 mg/dl (8.4-10.2); Carbon Dioxide 22 mmol/L (22-30); Chloride 103 mmol/L (98-107); Estimated Creatinine Clearance 68 ml/min; Glucose 138 mg/dl (70-99); Magnesium 1.8 mg/dl (1.6-2.3); Potassium 4.2 mmol/L (3.5-5.1); Sodium 134 mmol/L (135-145); eGFR > 60.00
[2024-05-01] MEDS: MUCINEX 600 MG PO ×2 (07:58→21:32)
[2024-05-01] MEDS: COREG 3.125 MG PO ×2 (07:59→21:32)
[2024-05-01] MEDS: PLAVIX 75 MG PO (07:59)
[2024-05-01] MEDS: ZOFRAN 4 MG IV (09:56)
[2024-05-01 10:17] LABS: % Basophils 0.2 % (0-2); % Immature Granulocytes 0.3 % (0-0.5); % Lymphocytes 6.5 % (20.5-51.1); % Monocytes 16.4 % (1.7-9.3); % Neutrophils 76.6 % (42.2-75.2); Absolute Lymphocytes 0.8 10^3/uL (1.2-3.4); Absolute Neutrophils 9.5 10^3/uL (1.4-6.5); Hematocrit 37.7 % (39.0-52.0); Hemoglobin 12.3 g/dL (13.0-18.0); Mean Corp Hgb Conc. 32.6 g/dL (33.0-37.0); Mean Corpuscular Hgb 25.8 pg (27.0-31.0); Nucleated Red Blood Cells % 0 % (-); Platelet Count 167 10^3/uL (130-400); Red Blood Cell Count 4.77 10^6/uL (4.70-6.10); Red Cell Dist. Width 15.4 % (11.5-14.5); White Blood Cell Count 12.4 10^3/uL (4.8-10.8)
--- NOTE | 2024-05-01 11:06 | W.PN.CARDCBS ---
Addendum entered and electronically signed by Ayush Casarez MD 05/01/24 14:06:
I saw and examined the patient.
The ELECTRONIC DEVICE MONITOR or PA's note was reviewed and I agree with the note.
Comment: General: Well developed, well nourished in NAD.
Neck: Supple, no JVD, HJR, carotids +2 B/L, no bruits bilaterally.
Heart: Non displaced PMI, RRR, no murmurs, No S3, S4, no rubs.
Lungs: Clear to auscultation bilaterally, no wheeze, rhonchi, rubs bilaterally,
normal expiratory phase.
Extremities: No clubbing, cyanosis or edema bilaterally.
Neuro: Grossly nonfocal, awake, alert and oriented x3.
Will do cardiac catheterization to exclude CAD as the cause of cardiomyopathy. Continue Coreg. Eventual lisinopril or Entresto and aldactone. Remains in sinus rhythm. Continue IV heparin. Eliquis is approximately $130 per month and will
consider starting after catheterization has been performed. Continue antibiotics for possible sepsis with dental work. Await cath results. May consider IV Lasix.
Original Note:
Today's Communication / Plan
-
Keep n.p.o.
Cardiac catheterization later today or in a.m.
Attempt GDMT for CM if BP allows
Continue heparin but will need eventual anticoagulation following catheterization
Continue antibiotics per primary service
Impression / Plan
-
PCP: Chet Grant
Amr Physician: Dr. Nicholson
Impression:
Presented to 04/30/2024 with diaphoresis, sweating and chills
Leukocytosis
Concern for sepsis, possibly secondary to extensive dental work
New onset atrial flutter with rapid ventricular response
Abnormal troponin, suspect nonischemic myocardial injury secondary to atrial flutter and sepsis
Newly diagnosed cardiomyopathy, unclear etiology
Coronary artery disease
Inferolateral NV with BETH to OM2/mid circumflex 05/2015
NSTEMI with occlusion with thrombectomy of previous placed OM stent with additional BETH 09/2016
Hypertension
Hyperlipidemia
Factor V Leiden
DVT of left leg following orthopedic surgery
Kidney stones status post
Ureter stone status post lithotripsy
Bilateral hernia repair
Echo 06/09/2015: EF 55 to 60% with mild inferolateral hypokinesis. Mild concentric LVH. Mild MR, PAP 25 to 30 mmHg
Stress echo 06/02/2022: Baseline echo mild hypokinesis in mid/distal inferolateral segments consistent with prior infarction. 12 minutes, 13 METS, 90% age-predicted max heart rate, no evidence of exercise-induced ischemia. DTS +12
Echocardiogram 04/30/2024: EF 33 to 36%. Mild concentric LVH. Mildly reduced RV systolic function. Mildly dilated left atrium with severe MR. Moderate TR. PAP 35 mmHg. Aortic root dilation sinus of Valsalva 4.1, ascending ao 3.9.
Cardiac catheterization 10/09/2016: LM: Normal. LAD 50%, 80% second diagonal. LCX: OM2 occlusion and previously placed BETH. Underwent successful thrombectomy with stenting 3.25 x 28 mm Xience BETH. RCA 30% proximal, distal 30% acute, marginal
ostial 50%. Posterior lateral branch with LI
Plan:
Presents 04/30/2024 with diaphoresis, sweating and chills. Noted to have leukocytosis with low-grade fever.
-Concern for sepsis possibly secondary to extensive dental work performed last week. Flu COVID-negative
-Blood cultures negative x 24 hours
-Continue antibiotics per primary service
Atrial flutter with rapid ventricular response.
-This appears to be new diagnosis over last 24 hours. Patient has [employer] Watch and checked his heart rate on 04/29/2024 which showed sinus rhythm. However upon awakening morning of 04/30/2024 he was noted to be in atrial fibrillation
-Paroxysmal atrial fibrillation/flutter noted overnight on telemetry. Heart rate seems to be reasonably controlled.
-Currently on heparin drip pending cardiac catheterization within next 24 hours
-Will require anticoagulation. Case management consult for cost of Eliquis
-Takes Coreg 3.125 mg as outpatient. If blood pressure allows consider up titration
Abnormal troponin, suspect nonischemic myocardial injury secondary to atrial flutter and sepsis
-Initial troponin was peak at 0.148
-Echocardiogram from 04/30/2024 now shows newly reduced ejection fraction with EF of 33 to 36% with severe MR and moderate TR
-Unclear etiology of newly reduced ejection fraction would proceed with cardiac catheterization to rule out progression of coronary artery disease. Reduced EF also could be related to tachycardia induced cardiomyopathy although A-fib flutter
appears to be intermittent versus valvular induced cardiomyopathy secondary to severe MR. Await findings of catheterization
-History of CAD with in-stent thrombosis September 2016. Outpatient recommendation was to continue indefinite dual antiplatelet therapy with aspirin and Plavix.
-Continue high-dose statin, beta-ann. Ideally would like to add back low-dose losartan which patient was on prior to admission. Blood pressure remains marginally low so continue to hold for now
Hypotensive - BP noted to be low on arrival, still low. Hold Losartan for now
Communicated with patient, nursing, hospitalist Dr. Benitez and speeder hand on plan.
HPI 04/30/2024:
Patient is a 69-year-old male with past medical history significant for coronary artery disease status post inferolateral NV with BEHT to OM/mid circumflex in May 2015 with NSTEMI and occlusion requiring thrombectomy of previous placed OM stent
09/2016, hypertension, hyperlipidemia, factor V Leiden, DVT of left leg who presents to emergency department 04/30/2024 with complaints of diaphoresis and chills. Patient reports he started to feel unwell at the end of last week with complaints of
fatigue and intermittent chills. He also noted palpitations for several days. He reports he had extensive dental work last week and underwent placement of 3 crowns within 6 days. In emergency department he was noted to be in atrial flutter 2-1
with rapid ventricular response. Troponin elevated at 0.148. He was found to have elevated white count of 14.7. He was COVID and flu negative. Chest x-ray showed subtle increased opacities along peripheral margin of left lung base likely
atelectasis versus scarring. He was started on IV heparin drip. Cardiology being asked to see patient given new onset atrial flutter and abnormal troponin
Progress Note - Amr Physician
Subjective
Date of Service: May 01, 2024
Patient seen and examined. Patient reports that he is feeling slightly better today. Still feels not back to baseline. Denies chest pain or shortness of breath.
Objective
Labs:
05/01/24 05:41
05/01/24 05:41
Labs
Hgb 12.3 g/dL (13.0-18.0) L 05/01/24 05:41
Hct 37.7 % (39.0-52.0) L 05/01/24 05:41
Plt Count 167 10^3/uL (130-400) 05/01/24 05:41
APTT 82.9 Sec (23.4-35.0) H 05/01/24 05:41
Sodium 134 mmol/L (135-145) L 05/01/24 05:41
Potassium 4.2 mmol/L (3.5-5.1) 05/01/24 05:41
BUN 17 mg/dl (9-20) 05/01/24 05:41
Creatinine 1.1 mg/dL (0.7-1.3) 05/01/24 05:41
Glucose 138 mg/dl (70-99) H 05/01/24 05:41
Troponins
04/30/24 04/30/24 04/30/24
06:29 13:30 19:46
Troponin I 0.148 H* 0.116 H* 0.074 H* D
05/01/24 05/01/24
00:00 01:52
Troponin I Cancelled 0.115 H* D
Vital Signs and I&O:
Vital Signs
Temp Pulse Resp BP Pulse Ox
98.1 F 72 20 98/61 97
05/01/24 07:02 05/01/24 07:02 05/01/24 07:02 05/01/24 07:02 05/01/24 07:02
Vital Signs
Temp Pulse Resp BP Pulse Ox
98.1 F 72 20 98/61 97
05/01/24 07:02 05/01/24 07:02 05/01/24 07:02 05/01/24 07:02 05/01/24 07:02
Intake & Output
04/29/24 04/30/24 05/01/24 05/02/24
06:59 06:59 06:59 06:59
Intake Total 480 / 480
Output Total 250 / 250
Balance 230 / 230
Physical Exam
Physical Exam
GEN: No distress, awake, Ox3
HEENT: supple, anicteric, mmm
LUNGS: CTA, no wheezes/rales
CV: Irregularly irregular, S1/S2, 1/6 apical murmur murmur, rub or gallop
ABD: soft, BS+, NT/ND
EXT: +1 edema left leg with skin changes consistent with chronic venous stasis, No edema of RLE
NEURO: Gross non-focal
SKIN: No rash, warm, dry, pin
--- NOTE | 2024-05-01 11:31 | W.PN.HOSP.TC ---
Today's Communication/Plan
-
possible cath today or tomorrow
appreciate cardiology
Assessment / Plan
Assessment / Plan
Mr. Dinesh Flower is a 69 yo man with hx CAD, factor V Leiden, HTN, HLD presents to the ER with sweating and chills. He had 3 dental crowns placed 6 days ago. Found to be in afib with TTE showing depressed EF.
TTE 04/30/24
CONCLUSIONS
Moderately reduced left ventricular systolic function
Left ventricular ejection fraction by Jung's method 36%, 33% by volumetric
assessment
Mild concentric left ventricular hypertrophy
Mildly reduced RV systolic function
Moderately dilated left atrium
Thickened mitral valve leaflets and chordae with mild mitral annular
calcification. Severe mitral regurgitation
Trileaflet sclerotic aortic valve without stenosis. Trace aortic regurgitation
Moderate tricuspid regurgitation
Estimated pulmonary artery pressure of 35 mmHg, assuming a right atrial
pressure of 10 mmHg.
No pericardial effusion
Dilated aortic root: Sinus of Valsalva 4.1 cm. Proximal ascending aorta mildly
dilated at 3.9 cm
Interatrial septum is intact with no evidence of shunting by color flow
Doppler.
Compared to stress echocardiogram 06/02/2012, limited 2D imaging with LV
ejection fraction estimated 50-54% with hypokinesis of the mid and distal
inferolateral clark. Compared to complete echocardiogram done 06/09/2015, mild
inferolateral hypokinesis also seen with a EF estimated 50-60%. Mild mitral
regurgitation. Trace tricuspid regurgitation.
Indications:
new afib
Sepsis with elevated WBC and RR
concern for Bacteremia with recent dental work versus pneumonia/bronchitis
-admit to tele
-broaden antibiotics to Cefepime/Flagyl (hx penicillin allergy)
-F/U blood cultures (thus far negative). If remain negative tomorrow narrow abx to Cefdinir
-sputum culture if produces enough sputum
Aflutter with RVR
-patient asymptomatic
-heparin gtt started in ER, will continue
-resume ELECTRICAL PROSPECTING OPERATOR coreg
-cardiology consult appreciated
HFrEF
Mitral Regurgitation
-new diagnosis
-appreciate cardiology consult
-considering cath
CAD
Hx STEMI s/p urgent thrombectomy and stent
-given need for AC will give plavix for now while on heparin gtt
-likely convert to NOAC, will place CM consult
Essential HTN
-hold Losartan for now to make room in BP for rate adjusting meds
HLD
-ELECTRICAL PROSPECTING OPERATOR statin
Hx Factor V Leiden
-patient states he hasn't been on Coumadin for over 20 years and past DVT's were provoked.
DVT PPx - heparin gtt
FULL CODE
Anticipated Discharge: 24 - 48 hours
Subjective/Interval History
-
Date of Service: May 01, 2024
feeling better this morning
cough/congestion improving
Objective Data
-
Labs:
Laboratory Results
04/30/24 05/01/24 05/01/24
23:49 05:41 11:40
WBC 12.4 H
Hgb 12.3 L
Hct 37.7 L
Plt Count 167
APTT 55.7 H 82.9 H Pending
Sodium 134 L
Potassium 4.2
Chloride 103
Carbon Dioxide 22
BUN 17
Creatinine 1.1
Glucose 138 H
Calcium 8.7
Vital Signs:
Vital Signs
Temp Pulse Resp BP Pulse Ox
98.1 F 72 20 98/61 97
05/01/24 07:02 05/01/24 07:02 05/01/24 07:02 05/01/24 07:02 05/01/24 07:02
I&O
04/30/24 05/01/24 05/02/24
06:59 06:59 06:59
Intake Total 480 / 480
Output Total 250 / 250
Balance 230 / 230
Review of Systems
-
History Source: Patient
All other systems: Reviewed and negative
Physical Exam
-
General: No Apparent Distress (laying flat )
HEENT: PERRLA
Respiratory: Clear to Auscultation; Negative Wheezes
Cardiac: Regular Rhythm and S1/S2
GI: Soft and Nontender
Musculoskeletal: No Edema
Skin: Warm and Dry; Negative Rash
Neuro: AO x 3
Psych: Calm
Data Reviewed
-
Diagnostic Radiology: Report Reviewed by me
Labs: Labs Reviewed by me
[2024-05-01 11:53] LABS: APTT 53.6 Sec (23.4-35.0)
[2024-05-01] MEDS: HEPARIN 25000 UNITS/250 ML IV (11:56)
[2024-05-01] MEDS: LOW STRENGTH ASPIRIN 162 MG PO (12:15)
[2024-05-01] MEDS: LIPITOR 80 MG PO (14:22)
--- NOTE | 2024-05-01 16:13 | CM ---
CM met with pt bedside
Pt resides with his spouse in a 2SH with 1STE, 14 steps upstairs
Pt notes independence with his ADLs
Denies use of DMEs
PCP- Chet Grant
rx- Balwinder Dubose
CM consult for med pricing
Call with [employer]
Eliquis 5 mg BID 30 days/$140/37 90 days/$421.12 mail order
Xarelto 30 mg QD 30 days/$134.01 90 days/$403.53 mail order
Update to cardio/ Andi Casarez
Pt will need 30 day card if prescribed on dc
Discharge Disposition- anticipate home no needs, 30 day card
--- NOTE | 2024-05-01 16:57 | ITS.CL.CATH ---
[employer] - Catheterization
Cardiac Catheterization
Procedure Report:
LEFT HEART CATHETERIZATION
Date of Procedure: May 01, 2024
Referring: Ayush Casarez
PROCEDURES:
1. Left heart catheterization, coronary angiogram.
2. Ultrasound-guided access
INDICATION: Concern for NSTEMI in the setting of new onset A-fib with RVR
ACCESS: Right radial artery, 6 Syriac sheath, under ultrasound guidance
HEMODYNAMICS : (mmHg)
AO (s/d) : 106/68
LV (s/d) : 106/12
LVEDP : 22
CORONARY FINDINGS
DOMINANCE: Right
LEFT MAIN: The left main artery is a large-caliber vessel which gives rise to the left anterior descending artery, a small caliber ramus intermedius branch, and the left circumflex artery. There is minimal luminal irregularities.
LEFT ANTERIOR DESCENDING: The left anterior descending artery is a medium to large caliber vessel with mild diffuse atherosclerotic plaque. Myocardial bridge is noted in the mid LAD at the level of the second diagonal branch. The first diagonal
branch is a small caliber vessel with mild to moderate diffuse atherosclerotic plaque.
CIRCUMFLEX: The left circumflex artery is a medium caliber vessel which gives rise to 2 major obtuse marginal branches which are medium to large in caliber. The first obtuse marginal has mild diffuse atherosclerotic plaque. The second obtuse
marginal branch has 2 prior stents with mild in-stent restenosis in the midportion but otherwise patent.
RIGHT CORONARY ARTERY: The right coronary artery is a large-caliber, dominant ectatic vessel with multiple tandem 30% proximal stenoses. The acute marginal branch has a 60 to 70% ostial stenosis. Ostial RPDA has eccentric 50% stenosis which
appears stable compared to prior cath in 2016.
SEDATION: 29 minutes of procedural sedation was utilized. An independent medical delivery driver was present to assist with and help manage the patient's level of consciousness and physiologic status.
RADIATION SUMMARY: Fluoro Time (min): 1.9, Dose (mGy): 419.0, DAP (Gy.cm2) : 28.6
Closure Device: Vascular band over right radial artery, 11 cc of air
CONCLUSIONS
1. Non-obstructive coronary artery disease. Mild to moderate coronary artery disease is noted.
2. Elevated LVEDP
RECOMMENDATIONS
1. Goal-directed medical therapy for nonischemic cardiomyopathy with plan for reassessment of severe mitral regurgitation once medically optimized and consideration for further workup/management if not improved with medical therapy alone.
2. IV diuresis.
3. Wean radial band per protocol.
4. Aggressive management of cardiovascular risk factors.
5. Goal-directed medical therapy for new onset atrial fibrillation with RVR.
6. Outpatient referral for cardiac rehab.
Copy to: Piotr Maynard
Katy Oliver MD, FACC, [facility]
[2024-05-01 18:35] LABS: APTT 35.2 Sec (23.4-35.0)
--- NOTE | 2024-05-02 00:46 | PTCARENOTE ---
Pt had an EKG post-cath ordered that had not been completed. EKG completed at 2336 showing sinus rhythm with new possible inferior infarct and possible left atrial enlargement. Pt is asymptomatic at this time. [facility] CMA Clemencia Lopez notified, no
new orders and JENNIFER Lopez rec'd this RN to contact on-call cultural centre manager. Field Ironworker Dr. Casarez notified by this RN of EKG findings, history of infarct in 2016 and that pt is asymptomatic. No new orders at this time, will continue to monitor.
[2024-05-02] MEDS: FLAGYL 500 MG 100 IV ×2 (01:27→09:02)
[2024-05-02 03:25] VITALS: BP 172/71
[2024-05-02] MEDS: MAXIPIME IV (04:10)
[2024-05-02] MEDS: STERILE WATER FOR INJECTION IV (04:10)
[2024-05-02] MEDS: STERILE WATER FOR INJECTION 10 ML IV (04:47)
[2024-05-02] MEDS: MAXIPIME 2000 MG IV (04:47)
[2024-05-02 04:59] VITALS: BP 115/75
[2024-05-02 06:00] VITALS: BMI 26.7
[2024-05-02 07:00] VITALS: BP 92/63
[2024-05-02 07:29] LABS: Hematocrit 37.3 % (39.0-52.0); Hemoglobin 11.9 g/dL (13.0-18.0); Mean Corp Hgb Conc. 31.9 g/dL (33.0-37.0); Mean Corpuscular Hgb 25.9 pg (27.0-31.0); Mean Corpuscular Volume 81.3 fL (80.0-94.0); Mean Platelet Volume 11.5 fL (7.4-10.4); Platelet Count 166 10^3/uL (130-400); Red Blood Cell Count 4.59 10^6/uL (4.70-6.10); Red Cell Dist. Width 15.5 % (11.5-14.5); White Blood Cell Count 11.2 10^3/uL (4.8-10.8)
[2024-05-02 07:43] LABS: Blood Urea Nitrogen 18 mg/dl (9-20); Calcium 8.4 mg/dl (8.4-10.2); Carbon Dioxide 25 mmol/L (22-30); Chloride 104 mmol/L (98-107); Estimated Creatinine Clearance 74 ml/min; Glucose 93 mg/dl (70-99); Potassium 4.2 mmol/L (3.5-5.1); Sodium 136 mmol/L (135-145); eGFR > 60.00
[2024-05-02] MEDS: PLAVIX 75 MG PO (09:01)
[2024-05-02] MEDS: FARXIGA 10 MG PO (09:01)
[2024-05-02] MEDS: COREG 3.125 MG PO (09:01)
[2024-05-02] MEDS: MUCINEX 600 MG PO (09:02)
[2024-05-02] MEDS: ASPIR LOW (ENTERIC COATED) 81 MG PO (09:02)
[2024-05-02] MEDS: COZAAR 25 MG PO (09:02)
[2024-05-02] MEDS: LASIX 20 MG IV (09:02)
--- NOTE | 2024-05-02 10:04 | CM ---
Addendum entered by Kate Hinds RN 05/02/24 12:06:
Pt dc.
Eliquis coupon given .
MD Dr Benitez aware Eliquis is $140.00/ month.
Original Note:
Remains on IV antibiotics.
Had heart cath yesterday.
Prior CM establish ceballos of Eliquis and Xarelto.
Please give coupon for above if ordered at in.
Declined VN at in.
PLAN Home no needs
--- NOTE | 2024-05-02 10:24 | W.PN.CARDCBS ---
Addendum entered and electronically signed by Jerome Nicholson MD 05/02/24 12:35:
I saw and examined the patient.
The Car Shunter's note was reviewed and I agree with the note.
Comment:
GEN: No distress, awake, Ox3
HEENT: supple, anicteric, mmm
LUNGS: CTA, no wheezes/rales
CV: Reg, S1/S2, 1/6 syst LSB, no gallop
ABD: soft, BS+, NT/ND
EXT: No edema
NEURO: Gross non-focal
SKIN: No rash
Plan:
Cath results reviewed. No significant coronary artery disease by cath. Filling pressures are overall only mildly elevated.
Will continue medical therapy for nonischemic myopathy.
Will start Eliquis 5 mg twice daily and stop aspirin. Continue Plavix. Continue carvedilol, losartan and will add spironolactone.
Cont farxiga
OK for D/C
Original Note:
Today's Communication / Plan
-
Stop aspirin
Start Eliquis 5 mg twice daily
Add Aldactone 12.5 mg daily
Stop Lasix
Impression / Plan
-
PCP: Chet Grant
Concreting Supervisor: Dr. Nicholson
Impression:
Presented to 04/30/2024 with diaphoresis, sweating and chills
Leukocytosis
Concern for sepsis, possibly secondary to extensive dental work
New onset atrial flutter with rapid ventricular response
Abnormal troponin, suspect nonischemic myocardial injury secondary to atrial flutter and sepsis
Newly diagnosed cardiomyopathy, unclear etiology
Coronary artery disease
Inferolateral AK with BETH to OM2/mid circumflex 05/2015
NSTEMI with occlusion with thrombectomy of previous placed OM stent with additional BETH 09/2016
Hypertension
Hyperlipidemia
Factor V Leiden
DVT of left leg following orthopedic surgery
Kidney stones status post
Ureter stone status post lithotripsy
Bilateral hernia repair
Echo 06/09/2015: EF 55 to 60% with mild inferolateral hypokinesis. Mild concentric LVH. Mild MR, PAP 25 to 30 mmHg
Stress echo 06/02/2022: Baseline echo mild hypokinesis in mid/distal inferolateral segments consistent with prior infarction. 12 minutes, 13 METS, 90% age-predicted max heart rate, no evidence of exercise-induced ischemia. DTS +12
Echocardiogram 04/30/2024: EF 33 to 36%. Mild concentric LVH. Mildly reduced RV systolic function. Mildly dilated left atrium with severe MR. Moderate TR. PAP 35 mmHg. Aortic root dilation sinus of Valsalva 4.1, ascending ao 3.9.
Cardiac catheterization 10/09/2016: LM: Normal. LAD 50%, 80% second diagonal. LCX: OM2 occlusion and previously placed BETH. Underwent successful thrombectomy with stenting 3.25 x 28 mm Xience BETH. RCA 30% proximal, distal 30% acute, marginal
ostial 50%. Posterior lateral branch with LI
Cardiac catheterization 05/01/2024: LM: LI. LAD: Mild diffuse atherosclerotic plaque. Myocardial bridge in the mid LAD at the level of second diagonal branch. LCX: Mild atherosclerotic plaque. Second obtuse marginal with 2 prior stents with mild
in-stent restenosis in midportion otherwise patent. RCA: Multiple proximal 30% tandem stenosis. Acute marginal 60 to 70% ostial. Ostial PDA 50% stenosis. Stable compared to prior cath in 2015. HEMODYNAMICS : (mmHg) AO (s/d) : 106/68; LV (s/d) :
106/12; LVEDP : 22
Plan:
Presents 04/30/2024 with diaphoresis, sweating and chills. Noted to have leukocytosis with low-grade fever.
-Concern for sepsis possibly secondary to extensive dental work performed last week. Flu COVID-negative
-Blood cultures negative x 48 hours; sputum normal robbi
-Continue antibiotics per primary service
Atrial flutter with rapid ventricular response.
-This appears to be new diagnosis. Patient has [employer] Watch and checked his heart rate on 04/29/2024 which showed sinus rhythm. However upon awakening morning of 04/30/2024 he was noted to be in atrial fibrillation
-Paroxysmal atrial fibrillation/flutter on telemetry. Heart rate seems to be reasonably controlled. Improved Afib in last 24 hours
-Start Eliquis 5 mg BID. Case management consult for cost of Eliquis vs Xarelto
-Takes Coreg 3.125 mg as outpatient. If blood pressure allows consider up titration
Abnormal troponin, suspect nonischemic myocardial injury secondary to atrial flutter and sepsis
-Initial troponin was peak at 0.148
-Echocardiogram from 04/30/2024 now shows newly reduced ejection fraction with EF of 33 to 36% with severe MR and moderate TR
-Underwent cardiac catheterization 05/01/2024 which demonstrated nonobstructive coronary artery disease, no intervention required.
-Unclear etiology of newly reduced ejection fraction as catheterization does not show any significant progression of coronary disease. Reduced EF also could be related to tachycardia induced cardiomyopathy although A-fib flutter appears to be
intermittent versus valvular induced cardiomyopathy secondary to severe MR.
-Continue to optimize GDMT with Coreg, losartan, Farxiga. Will add Aldactone 12.5 mg daily. Can uptitrate Aldactone as outpatient if blood pressure and renal function allow. Other alternative would be consideration of transitioning losartan to
Entresto.
-Stop Lasix with addition of Aldactone.
-Consider outpatient EFRAIN to assess severity of MR.
-History of CAD with in-stent thrombosis September 2016. Outpatient recommendation was to continue indefinite dual antiplatelet therapy with aspirin and Plavix. Now that pt has new AFib and needs OAC will stop ASA and continue Plavix and Eliquis.
-Continue high-dose statin, beta-ann, Losartan
Hypotensive - BP noted to be low on arrival, improved.
Communicated with patient, nursing, hospitalist Dr. Benitez
HPI 04/30/2024:
Patient is a 69-year-old male with past medical history significant for coronary artery disease status post inferolateral AK with BETH to OM/mid circumflex in May 2015 with NSTEMI and occlusion requiring thrombectomy of previous placed OM stent
09/2016, hypertension, hyperlipidemia, factor V Leiden, DVT of left leg who presents to emergency department 04/30/2024 with complaints of diaphoresis and chills. Patient reports he started to feel unwell at the end of last week with complaints of
fatigue and intermittent chills. He also noted palpitations for several days. He reports he had extensive dental work last week and underwent placement of 3 crowns within 6 days. In emergency department he was noted to be in atrial flutter 2-1
with rapid ventricular response. Troponin elevated at 0.148. He was found to have elevated white count of 14.7. He was COVID and flu negative. Chest x-ray showed subtle increased opacities along peripheral margin of left lung base likely
atelectasis versus scarring. He was started on IV heparin drip. Cardiology being asked to see patient given new onset atrial flutter and abnormal troponin
Progress Note - Concreting Supervisor
Subjective
Date of Service: May 02, 2024
Patient seen and examined. Patient resting comfortably in bed. Patient reports that he is feeling stronger today. Denies chest pain, shortness of breath, dizziness or lightheadedness
Objective
Labs:
05/02/24 05:40
05/02/24 05:40
Labs
Hgb 11.9 g/dL (13.0-18.0) L 05/02/24 05:40
Hct 37.3 % (39.0-52.0) L 05/02/24 05:40
Plt Count 166 10^3/uL (130-400) 05/02/24 05:40
APTT 35.2 Sec (23.4-35.0) H 05/01/24 18:19
Sodium 136 mmol/L (135-145) 05/02/24 05:40
Potassium 4.2 mmol/L (3.5-5.1) 05/02/24 05:40
BUN 18 mg/dl (9-20) 05/02/24 05:40
Creatinine 1.0 mg/dL (0.7-1.3) 05/02/24 05:40
Glucose 93 mg/dl (70-99) 05/02/24 05:40
Troponins
04/30/24 04/30/24 04/30/24
06:29 13:30 19:46
Troponin I 0.148 H* 0.116 H* 0.074 H* D
05/01/24 05/01/24
00:00 01:52
Troponin I Cancelled 0.115 H* D
Vital Signs and I&O:
Vital Signs
Temp Pulse Resp BP Pulse Ox
98.4 F 76 18 123/81 94
05/02/24 07:00 05/02/24 09:02 05/02/24 07:00 05/02/24 09:02 05/02/24 10:03
Vital Signs
Temp Pulse Resp BP Pulse Ox
98.4 F 76 18 123/81 94
05/02/24 07:00 05/02/24 09:02 05/02/24 07:00 05/02/24 09:02 05/02/24 10:03
Intake & Output
04/30/24 05/01/24 05/02/24 05/03/24
06:59 06:59 06:59 06:59
Intake Total 480 / 480 820 / 820
Output Total 250 / 250 875 / 875
Balance 230 / 230 -55 / -55
Physical Exam
Physical Exam
GEN: No distress, awake, Ox3
HEENT: supple, anicteric, mmm
LUNGS: CTA, no wheezes/rales
CV:regular rate and rhythm, S1/S2, 1/6 apical murmur murmur, rub or gallop
ABD: soft, BS+, NT/ND
EXT: +1 edema left leg with skin changes consistent with chronic venous stasis, No edema of RLE
NEURO: Gross non-focal
SKIN: No rash, warm, dry, pin
[2024-05-02 11:00] VITALS: BP 108/73
--- NOTE | 2024-05-02 11:01 | W.PN.HOSP.TC ---
Addendum entered and electronically signed by Fely Benitez MD 05/02/24 14:28:
patient called and told to go to lab on Tuesday to monitor K. He is also told to avoid foods high in potassium.
Original Note:
Today's Communication/Plan
-
DC today
Assessment / Plan
Assessment / Plan
Mr. Dinesh Flower is a 69 yo man with hx CAD, factor V Leiden, HTN, HLD presents to the ER with sweating and chills. He had 3 dental crowns placed 6 days ago. Found to be in afib with TTE showing depressed EF.
TTE 04/30/24
CONCLUSIONS
Moderately reduced left ventricular systolic function
Left ventricular ejection fraction by Jung's method 36%, 33% by volumetric
assessment
Mild concentric left ventricular hypertrophy
Mildly reduced RV systolic function
Moderately dilated left atrium
Thickened mitral valve leaflets and chordae with mild mitral annular
calcification. Severe mitral regurgitation
Trileaflet sclerotic aortic valve without stenosis. Trace aortic regurgitation
Moderate tricuspid regurgitation
Estimated pulmonary artery pressure of 35 mmHg, assuming a right atrial
pressure of 10 mmHg.
No pericardial effusion
Dilated aortic root: Sinus of Valsalva 4.1 cm. Proximal ascending aorta mildly
dilated at 3.9 cm
Interatrial septum is intact with no evidence of shunting by color flow
Doppler.
Compared to stress echocardiogram 06/02/2012, limited 2D imaging with LV
ejection fraction estimated 50-54% with hypokinesis of the mid and distal
inferolateral clark. Compared to complete echocardiogram done 06/09/2015, mild
inferolateral hypokinesis also seen with a EF estimated 50-60%. Mild mitral
regurgitation. Trace tricuspid regurgitation.
Cardiac Cath 05/01/24
CONCLUSIONS
1. Non-obstructive coronary artery disease. Mild to moderate coronary artery disease is noted.
2. Elevated LVEDP
RECOMMENDATIONS
1. Goal-directed medical therapy for nonischemic cardiomyopathy with plan for reassessment of severe mitral regurgitation once medically optimized and consideration for further workup/management if not improved with medical therapy alone.
2. IV diuresis.
3. Wean radial band per protocol.
4. Aggressive management of cardiovascular risk factors.
5. Goal-directed medical therapy for new onset atrial fibrillation with RVR.
6. Outpatient referral for cardiac rehab.
Sepsis with elevated WBC and RR
Likely Bronchitis; blood cultures now negative x 24 hours
-admit to tele
-narrow antibiotics to Cefdinir (day 3 therapy) - complete for 5 more days
Aflutter with RVR
-RECYCLING OPERATIONS MANAGER coreg
-new start Eliquis (stop aspirin)
-cardiology consult appreciated
HFrEF
Mitral Regurgitation
-new diagnosis
-appreciate cardiology consult
-s/p cath without obstructive disease
-GDMT: continue coreg, losartan
-new start: Farxiga, Spironolactone
-monitoring MR; may need eventual EFRAIN outpatient
CAD
Hx STEMI s/p urgent thrombectomy and stent
-continue RECYCLING OPERATIONS MANAGER Plavix
-DC aspirin given now on Eliquis
Essential HTN
-RECYCLING OPERATIONS MANAGER Losartan resumed
HLD
-RECYCLING OPERATIONS MANAGER statin
Hx Factor V Leiden
-patient states he hasn't been on Coumadin for over 20 years and past DVT's were provoked.
DVT PPx - heparin gtt
FULL CODE
Anticipated Discharge: Today
Subjective/Interval History
-
Date of Service: May 02, 2024
feeling well
breathing normal
no fevers
no cough
Objective Data
-
Labs:
Laboratory Results
05/02/24
05:40
WBC 11.2 H
Hgb 11.9 L
Hct 37.3 L
Plt Count 166
Sodium 136
Potassium 4.2
Chloride 104
Carbon Dioxide 25
BUN 18
Creatinine 1.0
Glucose 93
Calcium 8.4
Vital Signs:
Vital Signs
Temp Pulse Resp BP Pulse Ox
98.4 F 76 18 123/81 94
05/02/24 07:00 05/02/24 09:02 05/02/24 07:00 05/02/24 09:02 05/02/24 10:03
I&O
05/01/24 05/02/24 05/03/24
06:59 06:59 06:59
Intake Total 480 / 480 820 / 820
Output Total 250 / 250 875 / 875
Balance 230 / 230 -55 / -55
Review of Systems
-
History Source: Patient
All other systems: Reviewed and negative
Physical Exam
-
General: No Apparent Distress (conversant)
HEENT: PERRLA
Respiratory: Clear to Auscultation; Negative Wheezes
Cardiac: Regular Rhythm and S1/S2
GI: Soft and Nontender
Musculoskeletal: No Edema
Skin: Warm and Dry; Negative Rash
Neuro: AO x 3
Psych: Calm
Data Reviewed
-
Diagnostic Radiology: Report Reviewed by me
Labs: Labs Reviewed by me
[2024-05-02] MEDS: OMNICEF 300 MG PO (11:39)
[2024-05-02] MEDS: ELIQUIS 5 MG PO (11:40)
[2024-05-02] MEDS: ALDACTONE 12.5 MG PO (11:40)
--- NOTE | 2024-05-02 11:57 | W.DS.TRANS ---
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
-
Discharge Instructions:
Discharge Diagnosis/Procedures cardiac catheterization
Diet 2 Gram Sodium
Activity As tolerated
Driving Restrictions No driving for 24 hours
Bathing Restrictions None
Specialty Instructions Weigh Daily
Instructions: *DCA Heart Failure Instructions
Stand-Alone Forms: DC Instructions- Cath/EP Lab
Changes to Home Medications: Yes
Discharge Medications:
DC Medications w/original date entered in [employer]
atorvastatin 80 mg tablet 80 mg PO DAILY@1400 High Cholesterol 08/31/19
carvedilol 3.125 mg tablet 3.125 mg PO BID Blood Pressure 04/30/24
clopidogrel 75 mg tablet 75 mg PO DAILY Blood Clot Prevention/Tx 04/30/24
losartan 25 mg tablet 25 mg PO DAILY Blood Pressure 04/30/24
potassium citrate 15 mEq (1,620 mg) tablet,extended release 15 meq PO BID Electrolyte Repletion 04/30/24
apixaban 5 mg tablet (Eliquis) 5 mg PO BID #60 tabs 05/02/24
cefdinir 300 mg capsule 300 mg PO Q12 #10 caps 05/02/24
dapagliflozin propanediol 10 mg tablet 10 mg PO DAILY #30 tabs 05/02/24
guaifenesin 600 mg tablet, extended release 12 hr 600 mg PO Q12 #14 tabs 05/02/24
spironolactone 25 mg tablet 12.5 mg (1/2 x 25 mg) PO DAILY #30 tabs 05/02/24
Home Medication Changes
You have 5 more days of antibiotics (Cefdinir 300mg twice a day)
Stop Aspirin.
You are started on Eliquis for stroke prevention in atrial fibrillation.
Continue Plavix given history of coronary artery disease and stent.
Continue Coreg
Continue Losartan
You are newly started on:
Spironolactone 12.5mg daily
Jardiance 10mg daily
Please go to the lab in 5-7 days to monitor renal function and electrolytes with initiation of Spironolactone.
OK to continue potassium citrate. We will monitor your potassium levels closely while on Spironolactone.
Pending Results: No
--- NOTE | 2024-05-02 13:02 | PTCARENOTE ---
Rn Flow zone maintenance technician- Patient cleared for discharge. Patient provided with discharge instructions. Patient drove here, instructions state no driving for 24 hours. Antoni texted [facility] pa to confirm 24 after catheterization, rather than
discharge. [facility] confirmed that its 24 hour post catheterization.
--- NOTE | 2024-05-02 14:06 | W.DCSUMMARY ---
Discharge Summary
Discharge Data
Date of Admission: 04/30/24
Date of Discharge: 05/02/24
-
Pending Results: No
Hospital Course
Discharging Physician : Dr. Fely Benitez
Disposition : Home
Primary care physician : Dr. Chet Grant
Principal Discharge diagnosis : Sepsis secondary to Bronchitis; Non-ischemic cardiomyopathy, new diagnosis of afib/aflutter
Hospital Course :
Mr. Dinesh Flower is a 69 yo man with hx CAD, factor V Leiden, HTN, HLD presents to the ER with sweating and chills. He had 3 dental crowns placed 6 days ago. Patietn found to be in aflutter 140's on arrival. Labs with WBC 14.7, lactate 1.1,
afebrile. CXR without definitive focal airspace disease. Patient was admitted for sepsis with concern for bacteremia with recent dental procedure versus bronchitis (patient complained of cough and chest congestion).
Regarding sepsis, he was maintained on cefepime/flagyl while awaiting cultures. Blood cultures negative x 48 hours. Flu and Covid negative. Subjective symptoms much improved. Remained afebrile during hospitalization. He will be discharged with
5 more days of Cefdinir 300mg PO BID.
Regarding aflutter, patient was kept on INS[employer] GLASS Coreg with appropriate rate control. He is started on Eliquis for stroke reduction.
TTE with finding of LVEF 36% and severe MR. While in-patient he underwent cardiac cath without findings of obstructive coronary artery disease. He is continued on Coreg. He is started on Farxiga and Spironolactone for GDMT of non-ischemic
cardiomyopathy. His MR will be followed as outpatient, may need EFRAIN.
Given new start of Eliquis, INS[employer] GL[employer] aspirin discontinued.
Discussed with cardiology, OK to continue INSPECT[employer] M[employer] C[employer] GLASS Potassium Citrate for renal stone prevention. His outpatient labs will be closely monitored.
Time spent on discharge was 35 minutes.
Important imaging findings :
CXR 04/30/24
IMPRESSION:
No definitive focal airspace disease. There are some subtle increased opacities along the peripheral margin of the left lung base, likely reflective of atelectasis or scarring. Pneumonia is felt less likely. No pleural effusions.
TTE 04/30/24
CONCLUSIONS
Moderately reduced left ventricular systolic function
Left ventricular ejection fraction by Jung's method 36%, 33% by volumetric
assessment
Mild concentric left ventricular hypertrophy
Mildly reduced RV systolic function
Moderately dilated left atrium
Thickened mitral valve leaflets and chordae with mild mitral annular
calcification. Severe mitral regurgitation
Trileaflet sclerotic aortic valve without stenosis. Trace aortic regurgitation
Moderate tricuspid regurgitation
Estimated pulmonary artery pressure of 35 mmHg, assuming a right atrial
pressure of 10 mmHg.
No pericardial effusion
Dilated aortic root: Sinus of Valsalva 4.1 cm. Proximal ascending aorta mildly
dilated at 3.9 cm
Interatrial septum is intact with no evidence of shunting by color flow
Doppler.
Compared to stress echocardiogram 06/02/2012, limited 2D imaging with LV
ejection fraction estimated 50-54% with hypokinesis of the mid and distal
inferolateral clark. Compared to complete echocardiogram done 06/09/2015, mild
inferolateral hypokinesis also seen with a EF estimated 50-60%. Mild mitral
regurgitation. Trace tricuspid regurgitation.
Indications:
new afib
Procedure findings :
Cardiac Cath 05/01/24
CONCLUSIONS
1. Non-obstructive coronary artery disease. Mild to moderate coronary artery disease is noted.
2. Elevated LVEDP
RECOMMENDATIONS
1. Goal-directed medical therapy for nonischemic cardiomyopathy with plan for reassessment of severe mitral regurgitation once medically optimized and consideration for further workup/management if not improved with medical therapy alone.
2. IV diuresis.
3. Wean radial band per protocol.
4. Aggressive management of cardiovascular risk factors.
5. Goal-directed medical therapy for new onset atrial fibrillation with RVR.
6. Outpatient referral for cardiac rehab.
Discharge Plan
-
Patient Disposition: Home (Routine Discharge)
Discharge Diagnosis/Procedures: cardiac catheterization
Diet: 2 Gram Sodium
Activity: As tolerated
Driving Restrictions: No driving for 24 hours
Bathing Restrictions: None
Specialty Instructions: Weigh Daily- Call MD for wt gain/loss 3 lbs overnight/5 lbs in 1 week
Instructions: *DCA Heart Failure Instructions
Stand Alone Forms: DC Instructions- Cath/EP Lab
Referrals:
Sharda Neely PA-C [Specified Professional Personl] - 05/22/24 8:40 am
Chet Grant MD [Family Provider] - in less than 1 week
Additional Discharge Medication Instructions: You have 5 more days of antibiotics (Cefdinir 300mg twice a day)
Stop Aspirin.
You are started on Eliquis for stroke prevention in atrial fibrillation.
Continue Plavix given history of coronary artery disease and stent.
Continue Coreg
Continue Losartan
You are newly started on:
Spironolactone 12.5mg daily
Jardiance 10mg daily
Please go to the lab in 5-7 days to monitor renal function and electrolytes with initiation of Spironolactone.
OK to continue potassium citrate. We will monitor your potassium levels closely while on Spironolactone.
Prescriptions:
New
spironolactone 25 mg Tablet
12.5 mg PO DAILY Qty: 30 0RF
Eliquis 5 mg Tablet
5 mg PO BID Qty: 60 0RF
dapagliflozin propanediol 10 mg Tablet
10 mg PO DAILY Qty: 30 0RF
cefdinir 300 mg Capsule
300 mg PO Q12 Qty: 10 0RF
guaifenesin 600 mg Tablet Extended Release 12hr
600 mg PO Q12 Qty: 14 0RF
Continued
atorvastatin 80 MG tablet
80 mg PO DAILY@1400
potassium citrate 15 mEq Tablet Extended Release
15 meq PO BID
clopidogrel 75 mg Tablet
75 mg PO DAILY
carvedilol 3.125 MG tablet
3.125 mg PO BID
losartan 25 MG tablet
25 mg PO DAILY
Discontinued
Decongestant 2-5-325 mg Tablet
2 tab PO DAILYPRN PRN (Reason: congestion)
aspirin 81 MG tablet,delayed release (DR/EC)
81 mg PO DAILY
Discharge Orders:
Discharge Patient (As Directed); Ordered 05/02/24
Ordered By: Fely Benitez
Discharge Date and Time
Discharge Date/Time: 05/02/24 13:22
Print Language: FIJIAN
== END 2024-05-02 13:22 | disposition home or self-care (01) | DRG 872 ==
LOC: 4 WEST ACU 11:21
PROVIDERS: Internal Medicine Interventional Cardiology; Nurse Practitioner; ADMITTING PHYSICIAN Student in an Organized Health Care Education/Training Program; CONSULT PHYSICIAN Internal Medicine Cardiovascular Disease; EMERGENCY PHYSICIAN Emergency Medicine; FAMILY PHYSICIAN Family Medicine
PROC: 4A023N7 Measurement of Cardiac Sampling and Pressure, Left Heart, Percutaneous Approach (ICD-10-PCS; 2024-05-01)
PROC: B2111ZZ Fluoroscopy of Multiple Coronary Arteries using Low Osmolar Contrast (ICD-10-PCS; 2024-05-01)
DX: A41.9 Sepsis, unspecified organism (principal); D68.51 Activated protein C resistance; I42.8 Other cardiomyopathies; I48.92 Unspecified atrial flutter; Q24.5 Malformation of coronary vessels; I5A Non-ischemic myocardial injury (non-traumatic); I10 Essential (primary) hypertension; I77.810 Thoracic aortic ectasia; I34.0 Nonrheumatic mitral (valve) insufficiency; I95.9 Hypotension, unspecified; J40 Bronchitis, not specified as acute or chronic; I25.10 Atherosclerotic heart disease of native coronary artery without angina pectoris; I25.2 Old myocardial infarction; I48.91 Unspecified atrial fibrillation; I87.8 Other specified disorders of veins; E78.5 Hyperlipidemia, unspecified; Z87.19 Personal history of other diseases of the digestive system; Z87.442 Personal history of urinary calculi; Z86.718 Personal history of other venous thrombosis and embolism; Z79.01 Long term (current) use of anticoagulants; Z79.02 Long term (current) use of antithrombotics/antiplatelets; Z79.82 Long term (current) use of aspirin; Z79.899 Other long term (current) drug therapy; Z88.0 Allergy status to penicillin; Z11.52 Encounter for screening for COVID-19
CPT/HCPCS: 71046; 80048; 80053; 81003; 81015; 83605; 83735; 84443; 84484; 85025; 85027; 85730; 87040; 87070; 87205; 87502; 87811; 93005; 93306; 93458; 96361; 96374; 96375; 99152; 99153; 99291; C1894; Q9967

== ENCOUNTER → 2024-05-08 08:26 | Outpatient (REF) | payer MEDICARE, OTHER, SELFPAY ==
[2024-05-08 10:59] LABS: Blood Urea Nitrogen 14 mg/dl (9-20); Calcium 9.4 mg/dl (8.4-10.2); Carbon Dioxide 24 mmol/L (22-30); Chloride 101 mmol/L (98-107); Glucose 108 mg/dl (70-99); Potassium 5.5 mmol/L (3.5-5.1); Sodium 135 mmol/L (135-145); eGFR > 60.00
== END ==
LOC: REG 08:26
PROVIDERS: ATTENDING PHYSICIAN Internal Medicine Cardiovascular Disease; FAMILY PHYSICIAN Family Medicine; REFERRING PHYSICIAN Student in an Organized Health Care Education/Training Program
DX: I42.8 Other cardiomyopathies (principal)
CPT/HCPCS: 36415; 80048

== ENCOUNTER → 2024-05-15 07:40 | Outpatient (REF) | payer MEDICARE, OTHER, SELFPAY ==
[2024-05-15 09:17] LABS: Blood Urea Nitrogen 21 mg/dl (9-20); Calcium 9.5 mg/dl (8.4-10.2); Carbon Dioxide 26 mmol/L (22-30); Chloride 105 mmol/L (98-107); Glucose 106 mg/dl (70-99); Potassium 5.3 mmol/L (3.5-5.1); Sodium 138 mmol/L (135-145); eGFR > 60.00
== END ==
LOC: REG 07:40
PROVIDERS: ATTENDING PHYSICIAN Internal Medicine Cardiovascular Disease; FAMILY PHYSICIAN Family Medicine
DX: I25.10 Atherosclerotic heart disease of native coronary artery without angina pectoris (principal)
CPT/HCPCS: 36415; 80048

== ENCOUNTER → 2024-07-31 07:02 | Outpatient (REF) | payer MEDICARE, OTHER, SELFPAY | LOC: RCS 07:02 | PROVIDERS: ATTENDING PHYSICIAN Physician Assistant Medical; FAMILY PHYSICIAN Family Medicine | DX: I42.8 Other cardiomyopathies (principal) | CPT/HCPCS: 93306 ==

== ENCOUNTER 2024-10-26 07:18 | Emergency (ER) | payer MEDICARE, OTHER, SELFPAY ==
[2024-10-26 07:21] VITALS: BP 185/110
[2024-10-26 07:52] VITALS: BMI 26.2
[2024-10-26 08:02] VITALS: BP 164/94
--- NOTE | 2024-10-26 08:02 | ED.GENMED ---
History of Present Illness
<Billie Reina MD, Resident - Last Filed: 10/26/24 09:06>
General
Chief Complaint: Abdominal Pain
Time Seen by Provider: 10/26/24 07:25
History of Present Illness
History of Present Illness:
69 y/o male with past medical history of HFrEF, HTN, HLP, diverticulitis, nephrolithiasis, and Factor V Leiden presenting to the ED with abdominal discomfort and irregular bowel movements. pat notes his symptoms started on Tuesday with more
frequent relatively small volume bowel movements. Also notes mild abdominal discomfort in the LLQ that progressed this morning. Pt describes discomfort as feeling bloated and gassy without pain that radiates to the left flank. Also notes nausea and
sweating this morning. Denies vomiting, bloody stools, melena, chest pain, urinary symptoms and fever. Last bowel movement was this morning.
Pt has a history of diverticulitis in December 2023 and feels his symptoms are similar to the prior episode except that the discomfort is located in the lower abdomen this time. Last colonoscopy was in February 2024 that showed diverticulosis. Pt also
has a history of nephrolithiasis but feels his symptoms are not consistent with kidney stones. Pt is also being followed for an abdominal aortic aneurysm of 3.4 cm.
<Lewis Mccartney MD - Last Filed: 10/26/24 09:30>
General
Source: patient
Exam Limitations: none
Nursing documentation reviewed up to this point in time: agreed with
Past History
<Billie Reina MD, Resident - Last Filed: 10/26/24 09:06>
Past History
ED Past Medical History: CAD, HTN, Hypercholesterolemia, OK and Other (Kidney stone, DVT L leg, AAA, Factor V Leiden)
ED Past Surgical History: Cardiac, Orthopedic and Other (cath, bilateral hernia repair)
Social History
Tobacco: Non-smoker
Alcohol: Occasional
Drug: None
Personal:
Living: with family
Employment: Employed
Family History
Family History: Negative Diabetes, Hypertension or CAD
Review of Systems
<Billie Reina MD, Resident - Last Filed: 10/26/24 09:06>
Review of Systems
Constitutional: Reports no symptoms
EENT: Reports no symptoms
Respiratory: Reports no symptoms
Cardiac: Reports no symptoms
ABD/GI: Reports other (abdominal discomfort, bloating)
: Reports no symptoms
Musculoskeletal: Reports no symptoms
Skin: Reports no symptoms
Neurological: Reports no symptoms
Endocrine: Reports no symptoms
Hematologic/Lymphatic: Reports no symptoms
Psychiatric: Reports no symptoms
Phy Exam
<Billie Reina MD, Resident - Last Filed: 10/26/24 09:06>
Physical Exam
Physical Exam:
GENERAL: Alert, in no apparent distress
EYE: pupils equal and reactive
NECK: Supple, no significant adenopathy.
ENT: o/p clr, mmm.
CARDIAC: Regular rate and rhythm. Systolic murmur.
LUNGS: Clear breath sounds bilaterally, no acute respiratory distress, no wheezes/rales/rhonchi
ABDOMEN: Soft, without focal tenderness, no r/g, no cvat, no pulsatile mass.
NEUROLOGICAL: Alert and oriented, no focal neuro deficits
SKIN: Warm and dry, skin intact.
MUSCULOSKELETAL: Well perfused, bilateral pulses strong. Left calf swelling and redness without tenderness and warmth, consistent with patient's history of Achilles tendon rupture.
PSYCH: Normal and appropriate interaction.
Course
<Billie Reina MD, Resident - Last Filed: 10/26/24 09:06>
Orders/Labs/Results
Orders:
Orders
10/26/24 08:01
Complete Blood Count/With Diff Urgent
10/26/24 08:15
Basic Metabolic Panel Urgent
Abnormal Lab Results
10/26/24 10/26/24
08:01 08:15
MCH 25.6 L pg
(27.0-31.0)
MCHC 31.3 L g/dL
(33.0-37.0)
RDW 15.7 H %
(11.5-14.5)
Absolute Monos (auto) 1.2 H 10^3/uL
(0.1-0.6)
Lymphocytes % 19.9 L %
(20.5-51.1)
Monocytes % 16.5 H %
(1.7-9.3)
Chloride 108 H mmol/L
(98-107)
Glucose 124 H mg/dl
(70-99)
10/26/24 08:01
10/26/24 08:15
Vital Signs
Initial and Last Documented VS:
Initial Vital Signs
Pulse Resp BP Pulse Ox
53 18 185/110 97
10/26/24 07:21 10/26/24 07:21 10/26/24 07:21 10/26/24 07:21
Last Documented Vital Signs
Pulse Resp BP Pulse Ox
61 15 164/94 96
10/26/24 09:04 10/26/24 09:04 10/26/24 08:02 10/26/24 09:04
<Lewis Mccartney MD - Last Filed: 10/26/24 09:30>
Orders/Labs/Results
Orders:
Orders
10/26/24 08:01
Complete Blood Count/With Diff Urgent
10/26/24 08:15
Basic Metabolic Panel Urgent
Abnormal Lab Results
10/26/24 10/26/24
08:01 08:15
MCH 25.6 L pg
(27.0-31.0)
MCHC 31.3 L g/dL
(33.0-37.0)
RDW 15.7 H %
(11.5-14.5)
Absolute Monos (auto) 1.2 H 10^3/uL
(0.1-0.6)
Lymphocytes % 19.9 L %
(20.5-51.1)
Monocytes % 16.5 H %
(1.7-9.3)
Chloride 108 H mmol/L
(98-107)
Glucose 124 H mg/dl
(70-99)
10/26/24 08:01
10/26/24 08:15
Vital Signs
Initial and Last Documented VS:
Initial Vital Signs
Pulse Resp BP Pulse Ox
53 18 185/110 97
10/26/24 07:21 10/26/24 07:21 10/26/24 07:21 10/26/24 07:21
Last Documented Vital Signs
Pulse Resp BP Pulse Ox
61 15 164/94 96
10/26/24 09:04 10/26/24 09:04 10/26/24 08:02 10/26/24 09:04
<Billie Reina MD, Resident - Last Filed: 10/26/24 09:06>
MDM/Problems Addressed
Differential Diagnosis Includes:
Diverticulitis
Nephrolithiasis
Aortic dissection
MDM/Problems Addressed:
- CBC, BMP
- IVF
- Start antibiotics if labs c/w diverticulitis
<Billie Reina MD, Resident - Last Filed: 10/26/24 09:06>
*Critical Care Note
Total Time (30-74mins, 75-104mins- exclusive of procedures): Not Applicable
ED Attending Note
<Billie Reina MD, Resident - Last Filed: 10/26/24 09:06>
-
Portions of this chart may have been created with voice recognition software.� Occasional wrong word or��sound alike� substitutions may have occurred due to the inherent limitations of voice recognition software.
<Lewis Mccartney MD - Last Filed: 10/26/24 09:30>
ED Attending Note
Patient seen and examined by attending physician: Yes
ED Attending Note:
Patient presents to ED secondary to worsening left lower abdominal pain, along with irregular bowel movements over the past 3 days. Abdominal pain described as sharp, nonradiating, without any alleviating or exacerbating factors. As patient has
had history of diverticulitis as well as kidney stones, patient is unsure whether or not his current symptoms represent 1 or the other. Denies fever or chills. Denies nausea or vomiting. Denies diarrhea. Denies back pain. Denies difficulty with
urination. Denies trauma. No recent change in medications or diet.
Physical Exam
General: no apparent distress, not acutely ill. afebrile
Head: nc/at. eomi
Neck: supple. no meningeal signs.
Abdomen: normal bowel sounds. not tender. no distention
Neuro: alert and oriented. no focal neurological deficits
Skin: no rash
Psychiatric: well kept. interactive and cooperative
Extremities: no edema. no calf tenderness.
During the course of observation ED, patient noted to pass large kidney stone, with complete resolution of symptoms. As such, patient will be discharged home in stable condition, with recommendation to follow-up with his urologist as needed, as
outpatient.
Discharge Plan
Departure
Patient Disposition: Home (Routine Discharge)
Date of Disposition: 10/26/24
Time of Disposition: 09:03
Patient with high blood pressure during this ER visit?: Yes
Condition: Good
Discharge Problem:
Kidney stone on left side
Instructions: Kidney Stones (DC), BLOOD PRESSURE
Prescriptions:
No Action
atorvastatin 80 MG tablet
80 mg PO DAILY@1400
potassium citrate 15 mEq Tablet Extended Release
15 meq PO BID
clopidogrel 75 mg Tablet
75 mg PO DAILY
carvedilol 3.125 MG tablet
6.2 mg PO BID
losartan 25 MG tablet
25 mg PO DAILY
Eliquis 5 mg Tablet
5 mg PO BID Qty: 60 0RF
dapagliflozin propanediol 10 mg Tablet
10 mg PO DAILY Qty: 30 0RF
Referrals:
Piotr Baig Jr., MD [Active] -
Chet Grant MD [Family Provider] -
Interventions
Interventions:
*Risk Screen - Suicide Last Done: 10/26/24 07:21
*General Assessment Last Done: 10/26/24 07:21
*Neglect/Abuse Screening Last Done: 10/26/24 07:21
ED- Fall Risk Assessment Last Done: 10/26/24 08:08
*ED COVID-19 Vaccine History Last Done: 10/26/24 08:08
*Nursing Disposition Last Done: 10/26/24 09:15
EW-Belxsw-Syeagkvvcu Assessment Last Done: 10/26/24 08:08
Discharge Date and Time
Discharge Date/Time: 10/26/24 09:22
Print Language: LITHUANIAN
[2024-10-26 08:16] LABS: % Basophils 0.7 % (0-2); % Eosinophils 1.6 % (0-6); % Immature Granulocytes 0.3 % (0-0.5); % Lymphocytes 19.9 % (20.5-51.1); % Monocytes 16.5 % (1.7-9.3); Absolute Basophils 0.1 10^3/uL (0-0.2); Absolute Eosinophils 0.1 10^3/uL (0-0.7); Absolute Lymphocytes 1.4 10^3/uL (1.2-3.4); Absolute Monocytes 1.2 10^3/uL (0.1-0.6); Absolute Neutrophils 4.3 10^3/uL (1.4-6.5); Hematocrit 46.4 % (39.0-52.0); Hemoglobin 14.5 g/dL (13.0-18.0); Mean Corp Hgb Conc. 31.3 g/dL (33.0-37.0); Mean Corpuscular Hgb 25.6 pg (27.0-31.0); Mean Corpuscular Volume 81.8 fL (80.0-94.0); Mean Platelet Volume 10.3 fL (7.4-10.4); Nucleated Red Blood Cells % 0 % (-); Platelet Count 202 10^3/uL (130-400); Red Blood Cell Count 5.67 10^6/uL (4.70-6.10); Red Cell Dist. Width 15.7 % (11.5-14.5)
[2024-10-26 09:17] LABS: Blood Urea Nitrogen 20 mg/dl (9-20); Carbon Dioxide 25 mmol/L (22-30); Chloride 108 mmol/L (98-107); Estimated Creatinine Clearance 74 ml/min; Glucose 124 mg/dl (70-99); Sodium 142 mmol/L (135-145); eGFR > 60.00
== END 2024-10-26 09:22 | disposition home or self-care (01) ==
LOC: EMR 07:18
PROVIDERS: EMERGENCY PHYSICIAN Emergency Medicine; FAMILY PHYSICIAN Family Medicine
DX: N20.0 Calculus of kidney (principal); I11.0 Hypertensive heart disease with heart failure; I50.22 Chronic systolic (congestive) heart failure; E78.00 Pure hypercholesterolemia, unspecified
CPT/HCPCS: 99283; 80048; 85025

== ENCOUNTER → 2025-03-18 09:17 | Outpatient (REF) | payer MEDICARE, OTHER, SELFPAY ==
[2025-03-18 16:54] LABS: Urine Albumin 1+ (Neg - Trace); Urine Bilirubin Negative (Negative); Urine Character Clear (Clear); Urine Color Yellow; Urine Glucose 4+ (Negative); Urine Ketone Negative (Negative); Urine Leukocyte Negative (Negative); Urine Nitrite Negative (Negative); Urine Occult Blood 4+ (Negative); Urine Urobilinogen Negative (Neg - 1+)
[2025-03-18 17:45] LABS: Urine Mucus Many
[2025-03-18 17:46] LABS: Urine Bacteria Few (Negative); Urine Red Blood Cell 16-20 /HPF (0-2); Urine Squamous Cell 0-2 /LPF (Few); Urine White Cell 0-2 /HPF (0-5)
== END ==
LOC: CLAB 09:17
PROVIDERS: ATTENDING PHYSICIAN Specialist
DX: R31.9 Hematuria, unspecified (principal)
CPT/HCPCS: 81003; 81015

== ENCOUNTER → 2025-03-25 14:11 | Outpatient (REF) | payer MEDICARE, OTHER, SELFPAY | LOC: HWRAD 14:11 | PROVIDERS: ATTENDING PHYSICIAN Specialist; FAMILY PHYSICIAN Family Medicine | DX: R31.9 Hematuria, unspecified (principal) | CPT/HCPCS: 74176 ==